=== PATIENT | male | born 1940 | race Caucasian/White ===

== ENCOUNTER 2020-05-25 15:20 | Inpatient (IN) | payer MEDICARE, BC, OTHER ==
[2020-05-25] MEDS ORDERED: cefTRIAXone 1 GM in Sodium Chloride 0.9% 100 ML IV ONE (17:05)
--- NOTE | 2020-05-25 17:05 | EDM.PDOC ---
ED HPI GENERAL MEDICAL PROBLEM - General Chief Complaint: General Stated Complaint: confusion, fever, blood in urine Time Seen by Provider: 05/25/20 15:30 Source of Information: Reports: Patient, EMS History Limitations: Reports: Altered Mental Status - History of Present Illness INITIAL COMMENTS - FREE TEXT/NARRATIVE: Pt brought to ER via EMS for hematuria and confusion Pt states he started having blood in urine yesterday Has hx/o UTI's in past HAs hx/o of only one kidney Family states weaker and confused today Questionable fever No SOB No cough No chest pain No N/V/D Onset: Gradual Duration: Day(s): Location: Reports: Generalized Associated Symptoms: Reports: Weakness, Other (Hematuria) - Related Data Allergies Allergy/AdvReac Type Severity Reaction Status Date / Time No Known Allergies Allergy Verified 05/25/20 16:36 Home Meds: Home Meds Allopurinol [Zyloprim] 300 mg PO BEDTIME 05/25/20 [History] Aspirin [Aspirin EC] 81 mg PO DAILY 05/25/20 [History] Ferrous Sulfate [Iron] 325 mg PO BIDMEALS 05/25/20 [History] Furosemide [Lasix] 40 mg PO DAILY 05/25/20 [History] Omeprazole 20 mg PO DAILY 05/25/20 [History] Potassium Chloride 20 meq PO DAILY@1800 05/25/20 [History] Simvastatin 80 mg PO BEDTIME 05/25/20 [History] carvediloL [Carvedilol] 12.5 mg PO BIDMEALS 05/25/20 [History] ED ROS GENERAL - Review of Systems Review Of Systems: See Below Constitutional: Reports: Malaise, Weakness, Fatigue HEENT: Reports: No Symptoms Respiratory: Reports: No Symptoms Cardiovascular: Reports: No Symptoms : Reports: Hematuria Skin: Reports: No Symptoms Neurological: Reports: Confusion ED EXAM, GENERAL - Physical Exam Exam: See Below Exam Limited By: Altered Mental Status General Appearance: WD/WN Eye Exam: Bilateral Eye: EOMI, PERRL Throat/Mouth: Normal Oropharynx Head: Atraumatic Neck: Non-Tender Respiratory/Chest: Lungs Clear Cardiovascular: Regular Rate, Rhythm GI/Abdominal: Soft, Non-Tender (Male) Exam: Other (Gross hematuria) Extremities: Normal Inspection Neurological: Confused Psychiatric: Normal Affect, Normal Mood Skin Exam: Warm, Dry Course - Orders/Labs/Meds Orders: Active Orders 24 hr Category Date Time Status CBC WITH AUTO DIFF [HEME] Stat Lab 05/25/20 15:50 Received COMPREHENSIVE METABOLIC PN,CMP [CHEM] Stat Lab 05/25/20 16:34 Ordered CORONAVIRUS COVID-19 JOSE [MOLEC] Stat Lab 05/25/20 16:43 Ordered CULTURE BLOOD [BC] Stat Lab 05/25/20 16:35 Ordered CULTURE BLOOD [BC] Stat Lab 05/25/20 16:35 Ordered INFLUENZA A+B AG SCREEN [RM] Stat Lab 05/25/20 16:43 Ordered LACTIC ACID [CHEM] Stat Lab 05/25/20 16:34 Ordered UA W/MICROSCOPIC [URIN] Stat Lab 05/25/20 16:34 Ordered Blood Culture x2 Reflex Set [OM.PC] Stat Oth 05/25/20 16:34 Ordered Isolation [COMM] Routine Oth 05/25/20 16:43 Active - Re-Assessments/Exams Free Text/Narrative Re-Assessment/Exam: 05/25/20 17:03 See lab CBC, CMP and lactic WNL UA with blood and WBC's Will admit for treatment of hematuria/UTI Pt given Rocephin 1 gm IV and 1 L NS Departure - Departure Time of Disposition: 17:00 Disposition: Admitted As Inpatient 67 Clinical Impression: UTI, Urinary tract infectious disease - Discharge Information - My Orders Last 24 Hours: My Active Orders 05/25/20 15:50 CBC WITH AUTO DIFF [HEME] Stat 05/25/20 16:34 COMPREHENSIVE METABOLIC PN,CMP [CHEM] Stat LACTIC ACID [CHEM] Stat UA W/MICROSCOPIC [URIN] Stat Blood Culture x2 Reflex Set [OM.PC] Stat 05/25/20 16:35 CULTURE BLOOD [BC] Stat CULTURE BLOOD [BC] Stat 05/25/20 16:43 CORONAVIRUS COVID-19 JOSE [MOLEC] Stat INFLUENZA A+B AG SCREEN [RM] Stat Isolation [COMM] Routine - Assessment/Plan Last 24 Hours: My Active Orders 05/25/20 15:50 CBC WITH AUTO DIFF [HEME] Stat 05/25/20 16:34 COMPREHENSIVE METABOLIC PN,CMP [CHEM] Stat LACTIC ACID [CHEM] Stat UA W/MICROSCOPIC [URIN] Stat Blood Culture x2 Reflex Set [OM.PC] Stat 05/25/20 16:35 CULTURE BLOOD [BC] Stat CULTURE BLOOD [BC] Stat 05/25/20 16:43 CORONAVIRUS COVID-19 JOSE [MOLEC] Stat INFLUENZA A+B AG SCREEN [RM] Stat Isolation [COMM] Routine
[2020-05-25 17:08] LABS: CHLORIDE,CL 101 mmol/L (98-107); SODIUM,NA 134 mmol/L (136-145)
--- NOTE | 2020-05-25 18:28 | PCM.HP.2 ---
H&P History of Present Illness - General Date of Service: 05/25/20 Admit Problem/Dx: Pt presented to ER with weakness, hematuria and confusion Has hx/o UTI's in past when has hematuria UA showed RBC's and WBC's Pt also Influenza A and B positive Pt given IVF and IV Rocephin in ER Will be admitted for IV antibiotics, fluids and further care Confusion has improved Source of Information: Patient, Family - History of Present Illness Onset of Symptoms: Reports: Gradual Duration of Symptoms: Reports: Day(s):, Getting Worse Location: Reports: Generalized Associated Symptoms: Reports: Weakness, Other (Confusion and hematuria) - Related Data Allergies/Adverse Reactions: Allergies Allergy/AdvReac Type Severity Reaction Status Date / Time No Known Allergies Allergy Verified 05/25/20 16:36 Home Medications: Home Meds Allopurinol [Zyloprim] 300 mg PO BEDTIME 05/25/20 [History] Aspirin [Aspirin EC] 81 mg PO DAILY 05/25/20 [History] Ferrous Sulfate [Iron] 325 mg PO BIDMEALS 05/25/20 [History] Furosemide [Lasix] 40 mg PO DAILY 05/25/20 [History] Omeprazole 20 mg PO DAILY 05/25/20 [History] Potassium Chloride 20 meq PO DAILY@1800 05/25/20 [History] Simvastatin 80 mg PO BEDTIME 05/25/20 [History] carvediloL [Carvedilol] 12.5 mg PO BIDMEALS 05/25/20 [History] Past Medical History - Past Surgical History Male Surgical History: Reports: Other (See Below) Other Male Surgeries/Procedures: L kidney removal H&P Review of Systems - Review of Systems: Review Of Systems: See Below General: Reports: Fever, Malaise, Weakness, Fatigue Pulmonary: Reports: No Symptoms Cardiovascular: Reports: No Symptoms Gastrointestinal: Reports: No Symptoms Genitourinary: Reports: Hematuria Musculoskeletal: Reports: No Symptoms Neurological: Reports: Confusion Exam - Exam Exam: See Below - Vital Signs Weight: 197 lb 8 oz - Exam General: Mild Distress HEENT: Mucosa Moist & [place] Neck: Supple Lungs: Clear to Auscultation Cardiovascular: Regular Rhythm GI/Abdominal Exam: Soft, Non-Tender (Male) Exam: Other (Gross hematuria) Extremities: Normal Inspection Neuro Extensive - Mental Status: Normal Mood/Affect, Other (Mildly confused) - Patient Data Lab Results Last 24 hrs: Laboratory Results - last 24 hr 05/25/20 05/25/20 05/25/20 Range/Units 15:50 15:50 15:50 WBC 8.6 (4.0-10.2) K/uL RBC 4.82 (4.33-5.41) M/uL Hgb 15.2 (13.1-16.8) g/dL Hct 45.5 (39.0-49.0) % MCV 94.4 (84.0-98.0) fL MCH 31.5 (28.2-33.3) pg MCHC 33.4 (31.7-36.0) g/dL RDW 15.0 H (11.2-14.1) % Plt Count 61 L (150-350) K/uL Neut % (Auto) 94.3 H (45.0-80.0) % Lymph % (Auto) 2.8 L (10.0-50.0) % [place] % (Auto) 2.8 (2.0-14.0) % Eos % (Auto) 0.0 (0.0-5.0) % Baso % (Auto) 0.1 (0.0-2.0) % Neut # (Auto) 8.15 H (1.40-7.00) K/uL Lymph # (Auto) 0.24 L (0.50-3.50) K/uL [place] # (Auto) 0.24 (0.00-1.00) K/uL Eos # (Auto) 0.00 (0.00-0.50) K/uL Baso # (Auto) 0.01 (0.00-0.20) K/uL Sodium 134 L (136-145) mmol/L Potassium 4.2 (3.5-5.1) mmol/L Chloride 101 (98-107) mmol/L Carbon Dioxide 27.4 (21.0-32.0) mmol/L BUN 38 H (7-18) mg/dL Creatinine 1.55 H (0.51-1.17) mg/dL Est Cr Clr Drug Dosing TNP Estimated GFR (MDRD) 43 mL/min Glucose 126 H (74-106) mg/dL Lactic Acid 1.5 (0.4-2.0) mmol/L Calcium 9.3 (8.5-10.1) mg/dL Total Bilirubin 1.3 H (0.2-1.0) mg/dL AST 22 (15-37) U/L ALT 22 (12-78) U/L Alkaline Phosphatase 103 (46-116) IU/L Total Protein 6.7 (6.4-8.2) g/dL Albumin 3.4 (3.4-5.0) g/dL Specimen Type Urine Color (YELLOW) Urine Appearance (CLEAR) Urine pH (5.0-9.0) Ur Specific [place] (1.005-1.030) Urine Protein (NEGATIVE) mg/dL Urine Glucose (UA) (NEGATIVE) mg/dL Urine Ketones (NEGATIVE) mg/dL Urine Occult Blood (NEGATIVE) Urine Nitrite (NEGATIVE) Urine Bilirubin (NEGATIVE) Urine Urobilinogen (0.2-1.0) E.U./dL Ur Leukocyte Esterase (NEGATIVE) Urine RBC /HPF Urine WBC /HPF Ur Epithelial Cells /LPF Urine Bacteria (NONE TO FEW) /HPF Urinalysis Comment 05/25/20 Range/Units 16:40 WBC (4.0-10.2) K/uL RBC (4.33-5.41) M/uL Hgb (13.1-16.8) g/dL Hct (39.0-49.0) % MCV (84.0-98.0) fL MCH (28.2-33.3) pg MCHC (31.7-36.0) g/dL RDW (11.2-14.1) % Plt Count (150-350) K/uL Neut % (Auto) (45.0-80.0) % Lymph % (Auto) (10.0-50.0) % [place] % (Auto) (2.0-14.0) % Eos % (Auto) (0.0-5.0) % Baso % (Auto) (0.0-2.0) % Neut # (Auto) (1.40-7.00) K/uL Lymph # (Auto) (0.50-3.50) K/uL Polk # (Auto) (0.00-1.00) K/uL Eos # (Auto) (0.00-0.50) K/uL Baso # (Auto) (0.00-0.20) K/uL Sodium (136-145) mmol/L Potassium (3.5-5.1) mmol/L Chloride (98-107) mmol/L Carbon Dioxide (21.0-32.0) mmol/L BUN (7-18) mg/dL Creatinine (0.51-1.17) mg/dL Est Cr Clr Drug Dosing Estimated GFR (MDRD) mL/min Glucose (74-106) mg/dL Lactic Acid (0.4-2.0) mmol/L Calcium (8.5-10.1) mg/dL Total Bilirubin (0.2-1.0) mg/dL AST (15-37) U/L ALT (12-78) U/L Alkaline Phosphatase (46-116) IU/L Total Protein (6.4-8.2) g/dL Albumin (3.4-5.0) g/dL Specimen Type Urinvoid Urine Color Red H (YELLOW) Urine Appearance Turbid H (CLEAR) Urine pH 5.5 (5.0-9.0) Ur Specific [place] 1.020 (1.005-1.030) Urine Protein >=300 H (NEGATIVE) mg/dL Urine Glucose (UA) Negative (NEGATIVE) mg/dL Urine Ketones Trace H (NEGATIVE) mg/dL Urine Occult Blood Large H (NEGATIVE) Urine Nitrite Negative (NEGATIVE) Urine Bilirubin Moderate H (NEGATIVE) Urine Urobilinogen 2.0 H (0.2-1.0) E.U./dL Ur Leukocyte Esterase Large H (NEGATIVE) Urine RBC Packed /HPF Urine WBC >100 H /HPF Ur Epithelial Cells Few /LPF Urine Bacteria Moderate H (NONE TO FEW) /HPF Urinalysis Comment Result Diagrams: 05/25/20 15:50 05/25/20 15:50 Boris Results Last 24 hrs: Microbiology 05/25/20 16:40 Influenza Type A Antigen Screen - Final Nasal, Left Positive Influenza A Ag Influenza Type B Antigen Screen - Final Positive Influenza B Ag Sepsis Event Note - Evaluation Sepsis Screening Result: No Definite Risk - Problem List (1) Influenza SNOMED Code(s): 9965261 ICD Code: J11.1 - FLU DUE TO UNIDENTIFIED INFLUENZA VIRUS W OTH RESP MANIFEST Status: Acute Current Visit: Yes Problem Details: Pt Influenza A and B positive (2) UTI, Urinary tract infectious disease SNOMED Code(s): 95171996 ICD Code: N39.0 - URINARY TRACT INFECTION, SITE NOT SPECIFIED Status: Acute Current Visit: Yes Problem Details: Pt with RBC's and WBC's on UA Hx/o hematuria with previous UTI's Will treat with IV Rocpehin Problem List Initiated/Reviewed/Updated: Yes Orders Last 24hrs: Active Orders 24 hr Category Date Time Status CORONAVIRUS COVID-19 JOSE [MOLEC] Stat Lab 05/25/20 16:43 Ordered CULTURE BLOOD [BC] Stat Lab 05/25/20 16:35 Ordered CULTURE BLOOD [BC] Stat Lab 05/25/20 16:35 Ordered Blood Culture x2 Reflex Set [OM.PC] Stat Oth 05/25/20 16:34 Ordered Isolation [COMM] Routine Oth 05/25/20 16:43 Active Assessment/Plan Comment:: Imp: Influenza A and B UTI Plan: IV Rocephin
[2020-05-25] MEDS ORDERED: Ondansetron 4 MG Tab.DIS PO PRN (18:34)
[2020-05-25] MEDS ORDERED: cefTRIAXone 1 GM in Sodium Chloride 0.9% 100 ML IV SCH (19:00)
[2020-05-25] MEDS ORDERED: Furosemide 40 MG Tab PO ONE (19:00)
[2020-05-25] MEDS: Omeprazole 20 MG Cap.CR PO SCH (19:33)
[2020-05-25] MEDS: Potassium Chloride 20 MEQ Tab.ER PO SCH (19:33)
[2020-05-25] MEDS: Allopurinol 100 MG Tab PO SCH (19:34)
[2020-05-25] MEDS: Simvastatin 20 MG Tab PO SCH (19:34)
[2020-05-26] MEDS: Acetaminophen 325 MG Tab PO PRN ×2 (05:18→19:30)
[2020-05-26] MEDS: Sodium Chloride 0.9% 10 ML Syringe FLUSH SCH ×3 (08:39→19:32)
[2020-05-26] MEDS: Carvedilol 12.5 MG Tab PO SCH ×2 (08:40→17:08)
[2020-05-26] MEDS: Furosemide 40 MG Tab PO SCH (08:57)
--- NOTE | 2020-05-26 09:37 | PCM.PN ---
- General Info Date of Service: 05/26/20 Subjective Update: Pt with several fever spikes during the night Afebrile now Feels better Less confused Blood cultures with Gram negative rods - Review of Systems General: Reports: Fever, Weakness, Fatigue, Malaise, Chills Genitourinary: Reports: Hematuria Neurological: Reports: Confusion - Patient Data Vitals - Most Recent: Last Vital Signs Temp 98.2 F 05/26/20 08:36 Pulse 75 05/26/20 08:40 Resp 16 05/26/20 08:36 BP 142/65 H 05/26/20 08:40 Pulse Ox 93 L 05/26/20 08:36 Weight - Most Recent: 197 lb 8 oz Lab Results Last 24 Hours: Laboratory Results - last 24 hr 05/25/20 05/25/20 05/25/20 Range/Units 15:50 15:50 15:50 WBC 8.6 (4.0-10.2) K/uL RBC 4.82 (4.33-5.41) M/uL Hgb 15.2 (13.1-16.8) g/dL Hct 45.5 (39.0-49.0) % MCV 94.4 (84.0-98.0) fL MCH 31.5 (28.2-33.3) pg MCHC 33.4 (31.7-36.0) g/dL RDW 15.0 H (11.2-14.1) % Plt Count 61 L (150-350) K/uL Neut % (Auto) 94.3 H (45.0-80.0) % Lymph % (Auto) 2.8 L (10.0-50.0) % [place]illi[place] % (Auto) 2.8 (2.0-14.0) % Eos % (Auto) 0.0 (0.0-5.0) % Baso % (Auto) 0.1 (0.0-2.0) % Neut # (Auto) 8.15 H (1.40-7.00) K/uL Lymph # (Auto) 0.24 L (0.50-3.50) K/uL [place]illiam # (Auto) 0.24 (0.00-1.00) K/uL Eos # (Auto) 0.00 (0.00-0.50) K/uL Baso # (Auto) 0.01 (0.00-0.20) K/uL Sodium 134 L (136-145) mmol/L Potassium 4.2 (3.5-5.1) mmol/L Chloride 101 (98-107) mmol/L Carbon Dioxide 27.4 (21.0-32.0) mmol/L BUN 38 H (7-18) mg/dL Creatinine 1.55 H (0.51-1.17) mg/dL Est Cr Clr Drug Dosing TNP Estimated GFR (MDRD) 43 mL/min Glucose 126 H (74-106) mg/dL Lactic Acid 1.5 (0.4-2.0) mmol/L Calcium 9.3 (8.5-10.1) mg/dL Total Bilirubin 1.3 H (0.2-1.0) mg/dL AST 22 (15-37) U/L ALT 22 (12-78) U/L Alkaline Phosphatase 103 (46-116) IU/L Total Protein 6.7 (6.4-8.2) g/dL Albumin 3.4 (3.4-5.0) g/dL Specimen Type Urine Color (YELLOW) Urine Appearance (CLEAR) Urine pH (5.0-9.0) Ur Specific [place] (1.005-1.030) Urine Protein (NEGATIVE) mg/dL Urine Glucose (UA) (NEGATIVE) mg/dL Urine Ketones (NEGATIVE) mg/dL Urine Occult Blood (NEGATIVE) Urine Nitrite (NEGATIVE) Urine Bilirubin (NEGATIVE) Urine Urobilinogen (0.2-1.0) E.U./dL Ur Leukocyte Esterase (NEGATIVE) Urine RBC /HPF Urine WBC /HPF Ur Epithelial Cells /LPF Urine Bacteria (NONE TO FEW) /HPF Urinalysis Comment 05/25/20 Range/Units 16:40 WBC (4.0-10.2) K/uL RBC (4.33-5.41) M/uL Hgb (13.1-16.8) g/dL Hct (39.0-49.0) % MCV (84.0-98.0) fL MCH (28.2-33.3) pg MCHC (31.7-36.0) g/dL RDW (11.2-14.1) % Plt Count (150-350) K/uL Neut % (Auto) (45.0-80.0) % Lymph % (Auto) (10.0-50.0) % [place] % (Auto) (2.0-14.0) % Eos % (Auto) (0.0-5.0) % Baso % (Auto) (0.0-2.0) % Neut # (Auto) (1.40-7.00) K/uL Lymph # (Auto) (0.50-3.50) K/uL [place]am # (Auto) (0.00-1.00) K/uL Eos # (Auto) (0.00-0.50) K/uL Baso # (Auto) (0.00-0.20) K/uL Sodium (136-145) mmol/L Potassium (3.5-5.1) mmol/L Chloride (98-107) mmol/L Carbon Dioxide (21.0-32.0) mmol/L BUN (7-18) mg/dL Creatinine (0.51-1.17) mg/dL Est Cr Clr Drug Dosing Estimated GFR (MDRD) mL/min Glucose (74-106) mg/dL Lactic Acid (0.4-2.0) mmol/L Calcium (8.5-10.1) mg/dL Total Bilirubin (0.2-1.0) mg/dL AST (15-37) U/L ALT (12-78) U/L Alkaline Phosphatase (46-116) IU/L Total Protein (6.4-8.2) g/dL Albumin (3.4-5.0) g/dL Specimen Type Urinvoid Urine Color Red H (YELLOW) Urine Appearance Turbid H (CLEAR) Urine pH 5.5 (5.0-9.0) Ur Specific [place] 1.020 (1.005-1.030) Urine Protein >=300 H (NEGATIVE) mg/dL Urine Glucose (UA) Negative (NEGATIVE) mg/dL Urine Ketones Trace H (NEGATIVE) mg/dL Urine Occult Blood Large H (NEGATIVE) Urine Nitrite Negative (NEGATIVE) Urine Bilirubin Moderate H (NEGATIVE) Urine Urobilinogen 2.0 H (0.2-1.0) E.U./dL Ur Leukocyte Esterase Large H (NEGATIVE) Urine RBC Packed /HPF Urine WBC >100 H /HPF Ur Epithelial Cells Few /LPF Urine Bacteria Moderate H (NONE TO FEW) /HPF Urinalysis Comment Boris Results Last 24 Hours: Microbiology 05/25/20 15:50 Aerobic Blood Culture - Preliminary Blood - Venous Gram Negative Rods Anaerobic Blood Culture - Preliminary Gram Negative Rods 05/25/20 16:00 Aerobic Blood Culture - Preliminary Blood - Venous - Lab Draw Gram Negative Rods Anaerobic Blood Culture - Preliminary Gram Negative Rods 05/25/20 16:40 Influenza Type A Antigen Screen - Final Nasal, Left Positive Influenza A Ag Influenza Type B Antigen Screen - Final Positive Influenza B Ag Med Orders - Current: Current Medications Acetaminophen (Tylenol) 650 mg PO Q4H PRN PRN Reason: Pain (Mild 1-3)/fever Last Admin: 05/26/20 05:18 Dose: 650 mg Documented by: Allopurinol (Zyloprim) 300 mg PO BEDTIME [facility] Last Admin: 05/25/20 19:34 Dose: 300 mg Documented by: Carvedilol (Coreg) 12.5 mg PO BIDMEALS [facility] Last Admin: 05/26/20 08:40 Dose: 12.5 mg Documented by: Furosemide (Lasix) 40 mg PO DAILY [facility] Last Admin: 05/26/20 08:57 Dose: Not Given Documented by: Ceftriaxone Sodium 1 gm/ (Sodium Chloride) 100 mls @ 200 mls/hr IV Q24H [facility] Omeprazole (Omeprazole) 20 mg PO BEDTIME [facility] Last Admin: 05/25/20 19:33 Dose: 20 mg Documented by: Ondansetron HCl (Zofran Odt) 8 mg PO Q6H PRN PRN Reason: Nausea/Vomiting Potassium Chloride (Klor-Con M20) 20 meq PO BEDTIME [facility] Last Admin: 05/25/20 19:33 Dose: 20 meq Documented by: Simvastatin (Zocor) 80 mg PO BEDTIME [facility] Last Admin: 05/25/20 19:34 Dose: 80 mg Documented by: Sodium Chloride (Saline Flush) 10 ml FLUSH [facility] Last Admin: 05/26/20 08:39 Dose: 10 ml Documented by: Discontinued Medications Furosemide (Lasix) 40 mg PO ONETIME ONE Stop: 05/25/20 19:01 Last Admin: 05/25/20 23:14 Dose: Not Given Documented by: Ceftriaxone Sodium 1 gm/ (Sodium Chloride) 100 mls @ 200 mls/hr IV ONETIME ONE Stop: 05/25/20 17:34 Last Admin: 05/25/20 17:32 Dose: 200 mls/hr Documented by: Ceftriaxone Sodium 1 gm/ (Sodium Chloride) 100 mls @ 200 mls/hr IV Q24H [facility] Last Admin: 05/25/20 23:15 Dose: Not Given Documented by: - Exam Lungs: Clear to Auscultation Cardiovascular: Regular Rhythm GI/Abdominal Exam: Soft, Non-Tender (Male) Exam: Other (Hematuria improved) Sepsis Event Note - Evaluation Sepsis Screening Result: No Definite Risk - Focused Exam Vital Signs: Vital Signs Temp Pulse Pulse Resp BP BP BP 05/26/20 08:40 75 142/65 H 05/26/20 08:36 98.2 F 75 16 142/65 H 05/26/20 05:45 100.2 F 05/26/20 05:15 100.7 F H 05/26/20 05:00 98.2 F 05/26/20 03:26 97.7 F 62 20 155/71 H 05/25/20 23:00 97.7 F 57 L 20 144/67 H Pulse Ox 05/26/20 08:40 05/26/20 08:36 93 L 05/26/20 05:45 05/26/20 05:15 05/26/20 05:00 05/26/20 03:26 96 05/25/20 23:00 98 - Problem List & Annotations (1) Influenza SNOMED Code(s): 5456911 Code(s): J11.1 - FLU DUE TO UNIDENTIFIED INFLUENZA VIRUS W OTH RESP MANIFEST Status: Acute Current Visit: Yes Annotation/Comment:: Pt Influenza A and B positive (2) UTI, Urinary tract infectious disease SNOMED Code(s): 08802114 Code(s): N39.0 - URINARY TRACT INFECTION, SITE NOT SPECIFIED Status: Acute Current Visit: Yes Annotation/Comment:: Pt with RBC's and WBC's on UA Hx/o hematuria with previous UTI's Will treat with IV Rocpehin - Problem List Review Problem List Initiated/Reviewed/Updated: Yes - My Orders Last 24 Hours: My Active Orders 05/25/20 15:50 CULTURE BLOOD [BC] Stat 05/25/20 16:00 CULTURE BLOOD [BC] Stat 05/25/20 16:34 Blood Culture x2 Reflex Set [OM.PC] Stat 05/25/20 16:43 CORONAVIRUS COVID-19 JOSE [MOLEC] Stat Isolation [COMM] Routine 05/25/20 18:29 Patient Status [ADT] Routine Oxygen Therapy [RC] PRN VTE/DVT Education [RC] PER UNIT ROUTINE Vital Signs [RC] Q4H 05/25/20 18:34 Oxygen Therapy [RC] .PRN Up With Assistance [RC] ASDIRECTED VTE/DVT Education [RC] DAILY Vital Signs [RC] Q4H Acetaminophen [TylenoL] 650 mg PO Q4H PRN Ondansetron [Zofran ODT] 8 mg PO Q6H PRN Resuscitation Status Routine 05/25/20 20:00 Omeprazole 20 mg PO BEDTIME Potassium Chloride [Klor-Con M20] 20 meq PO BEDTIME Simvastatin [Zocor] 80 mg PO BEDTIME allopurinoL [Zyloprim] 300 mg PO BEDTIME 05/26/20 07:30 carvediloL [Coreg] 12.5 mg PO BIDMEALS 05/26/20 08:00 Furosemide [Lasix] 40 mg PO DAILY Sodium Chloride 0.9% [Saline Flush] 10 ml FLUSH 05/26/20 08:17 CULTURE URINE [RM] Routine 05/26/20 17:00 cefTRIAXone [Rocephin] 1 gm Sodium Chloride 0.9% [Normal Saline] 100 ml IV Q24H - Assessment Assessment:: Imp: Hematuria Influenza A and B Covid pending Positive blood cultures Gram negative rods - Plan Plan:: Imp: Influenza A and B UTI Plan: IV Rocephin Recheck lab Add Zosyn Await final culture report
[2020-05-26] MEDS ORDERED: Piperacillin/Tazobactam 3.375 GM in Sodium Chloride 0.9% 100 ML IV SCH (10:00)
[2020-05-26] MEDS ORDERED: Sodium Chloride 0.45% 1,000 ML IV ONE (12:00)
[2020-05-26] MEDS: Sodium Chloride 0.9% 10 ML Syringe FLUSH PRN (12:31)
[2020-05-26] MEDS: Piperacillin/Tazobactam 2.25 GM in Sodium Chloride 0.9% 100 ML IV SCH ×2 (15:51→21:13)
[2020-05-26] MEDS: cefTRIAXone 1 GM in Sodium Chloride 0.9% 100 ML IV SCH (17:08)
[2020-05-26] MEDS: Allopurinol 100 MG Tab PO SCH (19:28)
[2020-05-26] MEDS: Potassium Chloride 20 MEQ Tab.ER PO SCH (19:29)
[2020-05-26] MEDS: Simvastatin 20 MG Tab PO SCH (19:29)
[2020-05-26] MEDS: Omeprazole 20 MG Cap.CR PO SCH (19:30)
[2020-05-27] MEDS: Acetaminophen/Codeine 300-30 MG Tab PO PRN ×3 (01:31→22:57)
[2020-05-27] MEDS: Piperacillin/Tazobactam 2.25 GM in Sodium Chloride 0.9% 100 ML IV SCH ×4 (03:57→22:19)
[2020-05-27] MEDS: Furosemide 40 MG Tab PO SCH (08:19)
[2020-05-27] MEDS: Carvedilol 12.5 MG Tab PO SCH ×2 (08:19→17:04)
[2020-05-27 08:38] LABS: CHLORIDE,CL 106 mmol/L (98-107); SODIUM,NA 138 mmol/L (136-145)
[2020-05-27] MEDS: Sodium Chloride 0.9% 10 ML Syringe FLUSH SCH ×3 (09:13→20:21)
[2020-05-27] MEDS: Sodium Chloride 0.9% 10 ML Syringe FLUSH PRN ×3 (09:16→22:22)
--- NOTE | 2020-05-27 09:36 | PCM.PN ---
- General Info Date of Service: 05/27/20 Subjective Update: Pt feeling better Hematuria resolved One fever spike last PM Eating and drinking ok - Review of Systems General: Reports: Weakness Genitourinary: Reports: Hematuria - Patient Data Vitals - Most Recent: Last Vital Signs Temp 99.2 F 05/27/20 08:13 Pulse 68 05/27/20 08:19 Resp 16 05/27/20 08:13 BP 174/84 H 05/27/20 08:19 Pulse Ox 94 L 05/27/20 08:13 Weight - Most Recent: 197 lb 8 oz I&O - Last 24 Hours: Intake & Output 05/26/20 05/27/20 05/27/20 18:59 02:59 10:59 Intake Total 700 1650 Balance 700 1650 Lab Results Last 24 Hours: Laboratory Results - last 24 hr 05/25/20 05/26/20 05/26/20 Range/Units 16:43 09:50 09:50 WBC 6.6 (4.0-10.2) K/uL RBC 4.36 (4.33-5.41) M/uL Hgb 13.7 D (13.1-16.8) g/dL Hct 41.1 (39.0-49.0) % MCV 94.3 (84.0-98.0) fL MCH 31.4 (28.2-33.3) pg MCHC 33.3 (31.7-36.0) g/dL RDW 15.0 H (11.2-14.1) % Plt Count 46 L* (150-350) K/uL Neut % (Auto) 89.9 H (45.0-80.0) % Lymph % (Auto) 3.5 L (10.0-50.0) % [place] % (Auto) 6.4 (2.0-14.0) % Eos % (Auto) 0.0 (0.0-5.0) % Baso % (Auto) 0.2 (0.0-2.0) % Neut # (Auto) 5.92 (1.40-7.00) K/uL Lymph # (Auto) 0.23 L (0.50-3.50) K/uL [place] # (Auto) 0.42 (0.00-1.00) K/uL Eos # (Auto) 0.00 (0.00-0.50) K/uL Baso # (Auto) 0.01 (0.00-0.20) K/uL Sodium 136 (136-145) mmol/L Potassium 4.0 (3.5-5.1) mmol/L Chloride 104 (98-107) mmol/L Carbon Dioxide 23.3 (21.0-32.0) mmol/L BUN 52 H (7-18) mg/dL Creatinine 1.51 H (0.51-1.17) mg/dL Est Cr Clr Drug Dosing 34.51 mL/min Estimated GFR (MDRD) 45 mL/min Glucose 164 H (74-106) mg/dL Lactic Acid (0.4-2.0) mmol/L Calcium 8.9 (8.5-10.1) mg/dL SARS-CoV-2 RNA (JOSE) Negative (NEGATIVE) 05/27/20 05/27/20 05/27/20 Range/Units 08:05 08:05 08:05 WBC 4.2 (4.0-10.2) K/uL RBC 4.44 (4.33-5.41) M/uL Hgb 13.8 (13.1-16.8) g/dL Hct 41.3 (39.0-49.0) % MCV 93.0 (84.0-98.0) fL MCH 31.1 (28.2-33.3) pg MCHC 33.4 (31.7-36.0) g/dL RDW 14.8 H (11.2-14.1) % Plt Count 52 L (150-350) K/uL Neut % (Auto) 82.3 H (45.0-80.0) % Lymph % (Auto) 7.2 L (10.0-50.0) % [place] % (Auto) 10.3 (2.0-14.0) % Eos % (Auto) 0.2 (0.0-5.0) % Baso % (Auto) 0.0 (0.0-2.0) % Neut # (Auto) 3.43 (1.40-7.00) K/uL Lymph # (Auto) 0.30 L (0.50-3.50) K/uL [place] # (Auto) 0.43 (0.00-1.00) K/uL Eos # (Auto) 0.01 (0.00-0.50) K/uL Baso # (Auto) 0.00 (0.00-0.20) K/uL Sodium 138 (136-145) mmol/L Potassium 4.2 (3.5-5.1) mmol/L Chloride 106 (98-107) mmol/L Carbon Dioxide 22.1 (21.0-32.0) mmol/L BUN 42 H (7-18) mg/dL Creatinine 1.13 (0.51-1.17) mg/dL Est Cr Clr Drug Dosing 46.11 mL/min Estimated GFR (MDRD) > 60 mL/min Glucose 108 H (74-106) mg/dL Lactic Acid 0.8 (0.4-2.0) mmol/L Calcium 8.9 (8.5-10.1) mg/dL SARS-CoV-2 RNA (JOSE) (NEGATIVE) Boris Results Last 24 Hours: Microbiology 05/25/20 15:50 Aerobic Blood Culture - Preliminary Blood - Venous Gram Negative Rods Anaerobic Blood Culture - Preliminary Gram Negative Rods 05/25/20 16:00 Aerobic Blood Culture - Preliminary Blood - Venous - Lab Draw Gram Negative Rods Anaerobic Blood Culture - Preliminary Gram Negative Rods Med Orders - Current: Current Medications Acetaminophen (Tylenol) 650 mg PO Q4H PRN PRN Reason: Pain (Mild 1-3)/fever Last Admin: 05/26/20 19:30 Dose: 650 mg Documented by: Acetaminophen/Codeine Phosphate (Tylenol With Codeine No.3 300mg/30mg) 1 tab PO Q6H PRN PRN Reason: Pain Last Admin: 05/27/20 09:12 Dose: 1 tab Documented by: Allopurinol (Zyloprim) 300 mg PO BEDTIME [facility] Last Admin: 05/26/20 19:28 Dose: 300 mg Documented by: Carvedilol (Coreg) 12.5 mg PO BIDMEALS [facility] Last Admin: 05/27/20 08:19 Dose: 12.5 mg Documented by: Furosemide (Lasix) 40 mg PO DAILY [facility] Last Admin: 05/27/20 08:19 Dose: 40 mg Documented by: Ceftriaxone Sodium 1 gm/ (Sodium Chloride) 100 mls @ 200 mls/hr IV Q24H [facility] Last Admin: 05/26/20 17:08 Dose: 200 mls/hr Documented by: Piperacillin Sod/Tazobactam (Sod 2.25 gm/ Sodium Chloride) 100 mls @ 200 mls/hr IV Q6H [facility] Last Admin: 05/27/20 09:13 Dose: 200 mls/hr Documented by: Omeprazole (Omeprazole) 20 mg PO BEDTIME [facility] Last Admin: 05/26/20 19:30 Dose: 20 mg Documented by: Ondansetron HCl (Zofran Odt) 8 mg PO Q6H PRN PRN Reason: Nausea/Vomiting Potassium Chloride (Klor-Con M20) 20 meq PO BEDTIME [facility] Last Admin: 05/26/20 19:29 Dose: 20 meq Documented by: Simvastatin (Zocor) 80 mg PO BEDTIME [facility] Last Admin: 05/26/20 19:29 Dose: 80 mg Documented by: Sodium Chloride (Saline Flush) 10 ml FLUSH [facility] Last Admin: 05/27/20 09:13 Dose: 10 ml Documented by: Sodium Chloride (Saline Flush) 10 ml FLUSH ASDIRECTED PRN PRN Reason: Keep Jenni Open Last Admin: 05/27/20 09:16 Dose: 10 ml Documented by: Discontinued Medications Furosemide (Lasix) 40 mg PO ONETIME ONE Stop: 05/25/20 19:01 Last Admin: 05/25/20 23:14 Dose: Not Given Documented by: Ceftriaxone Sodium 1 gm/ (Sodium Chloride) 100 mls @ 200 mls/hr IV ONETIME ONE Stop: 05/25/20 17:34 Last Admin: 05/25/20 17:32 Dose: 200 mls/hr Documented by: Ceftriaxone Sodium 1 gm/ (Sodium Chloride) 100 mls @ 200 mls/hr IV Q24H [facility] Last Admin: 05/25/20 23:15 Dose: Not Given Documented by: Piperacillin Sod/Tazobactam (Sod 3.375 gm/ Sodium Chloride) 100 mls @ 200 mls/hr IV Q6H [facility] Last Admin: 05/26/20 10:42 Dose: 200 mls/hr Documented by: Sodium Chloride (Sodium Chloride 0.45%) 1,000 mls @ 100 mls/hr IV ONETIME ONE Stop: 05/26/20 21:59 Last Admin: 05/26/20 12:28 Dose: 100 mls/hr Documented by: - Exam Neck: Supple Lungs: Normal Respiratory Effort Cardiovascular: Regular Rate GI/Abdominal Exam: Soft, Non-Tender Sepsis Event Note - Evaluation Sepsis Screening Result: No Definite Risk - Focused Exam Vital Signs: Vital Signs Temp Pulse Pulse Resp BP BP BP 05/27/20 08:19 68 174/84 H 05/27/20 08:13 99.2 F 68 16 174/84 H 05/27/20 04:05 97.8 F 59 L 20 151/66 H 05/27/20 01:00 98 F 65 20 165/74 H 05/26/20 21:36 99.5 F Pulse Ox 05/27/20 08:19 05/27/20 08:13 94 L 05/27/20 04:05 94 L 05/27/20 01:00 93 L 05/26/20 21:36 - Problem List & Annotations (1) Influenza SNOMED Code(s): 9348558 Code(s): J11.1 - FLU DUE TO UNIDENTIFIED INFLUENZA VIRUS W OTH RESP MANIFEST Status: Acute Current Visit: Yes Annotation/Comment:: Pt Influenza A and B positive (2) UTI, Urinary tract infectious disease SNOMED Code(s): 33415761 Code(s): N39.0 - URINARY TRACT INFECTION, SITE NOT SPECIFIED Status: Acute Current Visit: Yes Annotation/Comment:: Pt with RBC's and WBC's on UA Hx/o hematuria with previous UTI's Will treat with IV Rocpehin - Problem List Review Problem List Initiated/Reviewed/Updated: Yes - My Orders Last 24 Hours: My Active Orders 05/26/20 10:53 Sodium Chloride 0.9% [Saline Flush] 10 ml FLUSH ASDIRECTED PRN 05/26/20 16:00 Piperacillin/Tazobactam [Zosyn] 2.25 gm Sodium Chloride 0.9% [Normal Saline] 100 ml IV Q6H 05/26/20 17:00 cefTRIAXone [Rocephin] 1 gm Sodium Chloride 0.9% [Normal Saline] 100 ml IV Q24H 05/26/20 22:15 Acetaminophen/Codeine [Tylenol with Codeine No.3 300MG/30MG] 1 tab PO Q6H PRN - Assessment Assessment:: Imp: Hematuria Influenza A and B Covid pending Positive blood cultures Gram negative rods Covid test negative Hematuria resolved - Plan Plan:: Imp: Influenza A and B UTI Plan: IV Rocephin Recheck lab Add Zosyn Await final culture report
[2020-05-27] MEDS: cefTRIAXone 1 GM in Sodium Chloride 0.9% 100 ML IV SCH (17:03)
[2020-05-27] MEDS: Simvastatin 20 MG Tab PO SCH (20:19)
[2020-05-27] MEDS: Omeprazole 20 MG Cap.CR PO SCH (20:20)
[2020-05-27] MEDS: Potassium Chloride 20 MEQ Tab.ER PO SCH (20:20)
[2020-05-27] MEDS: Allopurinol 100 MG Tab PO SCH (20:21)
[2020-05-27] MEDS: Acetaminophen 325 MG Tab PO PRN (20:21)
[2020-05-28] MEDS: Sodium Chloride 0.9% 10 ML Syringe FLUSH PRN ×6 (04:09→22:42)
[2020-05-28] MEDS: Piperacillin/Tazobactam 2.25 GM in Sodium Chloride 0.9% 100 ML IV SCH ×4 (04:09→22:41)
[2020-05-28] MEDS: Carvedilol 12.5 MG Tab PO SCH ×2 (08:46→16:49)
[2020-05-28] MEDS: Sodium Chloride 0.9% 10 ML Syringe FLUSH SCH ×2 (08:46→20:17)
[2020-05-28] MEDS: Furosemide 40 MG Tab PO SCH (08:46)
--- NOTE | 2020-05-28 09:17 | PCM.PN ---
- General Info Date of Service: 05/28/20 Subjective Update: Fever to 100.7 last PM No further fevers Feels better Ambulating in room - Review of Systems General: Reports: Fever, Weakness Pulmonary: Reports: Shortness of Breath Cardiovascular: Reports: No Symptoms Genitourinary: Reports: Hematuria - Patient Data Vitals - Most Recent: Last Vital Signs Temp 98.4 F 05/28/20 04:00 Pulse 57 L 05/28/20 08:46 Resp 19 05/28/20 04:00 BP 171/71 H 05/28/20 08:46 Pulse Ox 94 L 05/28/20 04:00 Weight - Most Recent: 197 lb 7.982 oz I&O - Last 24 Hours: Intake & Output 05/27/20 05/28/20 05/28/20 18:59 02:59 10:59 Intake Total 471 Balance 471 Boris Results Last 24 Hours: Microbiology 05/25/20 15:50 Aerobic Blood Culture - Final Blood - Venous Escherichia Coli Anaerobic Blood Culture - Preliminary Gram Negative Rods Med Orders - Current: Current Medications Acetaminophen (Tylenol) 650 mg PO Q4H PRN PRN Reason: Pain (Mild 1-3)/fever Last Admin: 05/27/20 20:21 Dose: 650 mg Documented by: Acetaminophen/Codeine Phosphate (Tylenol With Codeine No.3 300mg/30mg) 1 tab PO Q6H PRN PRN Reason: Pain Last Admin: 05/27/20 22:57 Dose: 1 tab Documented by: Allopurinol (Zyloprim) 300 mg PO BEDTIME [facility] Last Admin: 05/27/20 20:21 Dose: 300 mg Documented by: Carvedilol (Coreg) 12.5 mg PO BIDMEALS [facility] Last Admin: 05/28/20 08:46 Dose: 12.5 mg Documented by: Furosemide (Lasix) 40 mg PO DAILY [facility] Last Admin: 05/28/20 08:46 Dose: 40 mg Documented by: Ceftriaxone Sodium 1 gm/ (Sodium Chloride) 100 mls @ 200 mls/hr IV Q24H [facility] Last Admin: 05/27/20 17:03 Dose: 200 mls/hr Documented by: Piperacillin Sod/Tazobactam (Sod 2.25 gm/ Sodium Chloride) 100 mls @ 200 mls/hr IV Q6H [facility] Last Admin: 05/28/20 04:09 Dose: 200 mls/hr Documented by: Omeprazole (Omeprazole) 20 mg PO BEDTIME [facility] Last Admin: 05/27/20 20:20 Dose: 20 mg Documented by: Ondansetron HCl (Zofran Odt) 8 mg PO Q6H PRN PRN Reason: Nausea/Vomiting Potassium Chloride (Klor-Con M20) 20 meq PO BEDTIME [facility] Last Admin: 05/27/20 20:20 Dose: 20 meq Documented by: Simvastatin (Zocor) 80 mg PO BEDTIME [facility] Last Admin: 05/27/20 20:19 Dose: 80 mg Documented by: Sodium Chloride (Saline Flush) 10 ml FLUSH 20 [facility] Last Admin: 05/28/20 08:46 Dose: 10 ml Documented by: Sodium Chloride (Saline Flush) 10 ml FLUSH ASDIRECTED PRN PRN Reason: Keep Jenni Open Last Admin: 05/28/20 04:09 Dose: 10 ml Documented by: Discontinued Medications Furosemide (Lasix) 40 mg PO ONETIME ONE Stop: 05/25/20 19:01 Last Admin: 05/25/20 23:14 Dose: Not Given Documented by: Ceftriaxone Sodium 1 gm/ (Sodium Chloride) 100 mls @ 200 mls/hr IV ONETIME ONE Stop: 05/25/20 17:34 Last Admin: 05/25/20 17:32 Dose: 200 mls/hr Documented by: Ceftriaxone Sodium 1 gm/ (Sodium Chloride) 100 mls @ 200 mls/hr IV Q24H [facility] Last Admin: 05/25/20 23:15 Dose: Not Given Documented by: Piperacillin Sod/Tazobactam (Sod 3.375 gm/ Sodium Chloride) 100 mls @ 200 mls/hr IV Q6H [facility] Last Admin: 05/26/20 10:42 Dose: 200 mls/hr Documented by: Sodium Chloride (Sodium Chloride 0.45%) 1,000 mls @ 100 mls/hr IV ONETIME ONE Stop: 05/26/20 21:59 Last Admin: 05/26/20 12:28 Dose: 100 mls/hr Documented by: - Exam General: Alert, Oriented Neck: Supple Lungs: Clear to Auscultation Cardiovascular: Regular Rate GI/Abdominal Exam: Soft, Non-Tender (Male) Exam: Other (No hematuria) Sepsis Event Note - Evaluation Sepsis Screening Result: No Definite Risk - Focused Exam Vital Signs: Vital Signs Temp Pulse Pulse Resp BP BP Pulse Ox 05/28/20 08:46 57 L 171/71 H 05/28/20 04:00 98.4 F 56 L 19 166/77 H 94 L 05/27/20 22:58 97.8 F 63 20 149/75 H 93 L - Problem List & Annotations (1) Influenza SNOMED Code(s): 8351101 Code(s): J11.1 - FLU DUE TO UNIDENTIFIED INFLUENZA VIRUS W OTH RESP MANIFEST Status: Acute Current Visit: Yes Annotation/Comment:: Pt Influenza A and B positive (2) UTI, Urinary tract infectious disease SNOMED Code(s): 44411179 Code(s): N39.0 - URINARY TRACT INFECTION, SITE NOT SPECIFIED Status: Acute Current Visit: Yes Annotation/Comment:: Pt with RBC's and WBC's on UA Hx/o hematuria with previous UTI's Will treat with IV Rocpehin - Problem List Review Problem List Initiated/Reviewed/Updated: Yes - Assessment Assessment:: Imp: Hematuria Influenza A and B Covid pending Positive blood cultures Gram negative rods Covid test negative Hematuria resolved Imp: Influenza A and B UTI Hematuria resolved - Plan Plan:: Imp: Influenza A and B UTI Plan: IV Rocephin Recheck lab Add Zosyn Await final culture report Plan: Continue IV antibiotics Monitor fever
[2020-05-28] MEDS: cefTRIAXone 1 GM in Sodium Chloride 0.9% 100 ML IV SCH (16:49)
[2020-05-28] MEDS: Potassium Chloride 20 MEQ Tab.ER PO SCH (20:16)
[2020-05-28] MEDS: Omeprazole 20 MG Cap.CR PO SCH (20:16)
[2020-05-28] MEDS: Simvastatin 20 MG Tab PO SCH (20:17)
[2020-05-28] MEDS: Allopurinol 100 MG Tab PO SCH (20:17)
[2020-05-28] MEDS: Acetaminophen 325 MG Tab PO PRN (22:44)
[2020-05-29] MEDS: Piperacillin/Tazobactam 2.25 GM in Sodium Chloride 0.9% 100 ML IV SCH ×4 (03:30→21:23)
[2020-05-29] MEDS: Sodium Chloride 0.9% 10 ML Syringe FLUSH PRN ×4 (03:30→21:24)
[2020-05-29] MEDS: Furosemide 40 MG Tab PO SCH (07:48)
[2020-05-29] MEDS: Carvedilol 12.5 MG Tab PO SCH ×2 (07:49→16:59)
[2020-05-29] MEDS: Sodium Chloride 0.9% 10 ML Syringe FLUSH SCH ×2 (07:49→19:51)
[2020-05-29 08:03] LABS: CHLORIDE,CL 105 mmol/L (98-107); SODIUM,NA 139 mmol/L (136-145)
[2020-05-29] MEDS: Enoxaparin 40 MG/0.4 ML Syringe SUBCUT SCH (14:18)
[2020-05-29] MEDS: Losartan 50 MG Tab PO SCH (14:19)
--- NOTE | 2020-05-29 15:56 | PCM.PN ---
- General Info Date of Service: 05/29/20 Admission Dx/Problem (Free Text): Pt presented to ER with weakness, hematuria and confusion Has hx/o UTI's in past when has hematuria Noted to have UTI. Pt also Influenza A and B positive Pt given IV fluids and IV Rocephin in ER. Admitted for further care/fluids/antibiotics. Blood cultures + for E.Coli sepsis. Subjective Update: Low grade temps intermittently. Patient feels tired. No other acute changes reported. Functional Status: Reports: Pain Controlled, Tolerating Diet, Ambulating, Urinating. Denies: New Symptoms - Review of Systems General: Reports: Fever, Weakness, Fatigue, Appetite (decreased). Denies: Malaise, Chills, Night Sweats HEENT: Reports: Rhinitis. Denies: Headaches, Post Nasal Drip, Sinus Congestion, Sore Throat, Visual Changes Pulmonary: Reports: Cough (minimal/improving). Denies: Shortness of Breath, Pleuritic Chest Pain, Sputum, Hemoptysis, Wheezing Cardiovascular: Reports: No Symptoms Gastrointestinal: Reports: No Symptoms Genitourinary: Reports: Hematuria (improved) Musculoskeletal: Reports: Other (no acute changes from baseline) Skin: Reports: No Symptoms Neurological: Reports: No Symptoms Psychiatric: Reports: No Symptoms - Patient Data Vitals - Most Recent: Last Vital Signs Temp 36.9 C 05/29/20 12:14 Pulse 56 L 05/29/20 12:14 Resp 16 05/29/20 12:14 BP 144/76 H 05/29/20 14:19 Pulse Ox 96 05/29/20 12:14 Weight - Most Recent: 89.584 kg I&O - Last 24 Hours: Intake & Output 05/29/20 05/29/20 05/29/20 06:59 14:59 22:59 Intake Total 85 Balance 85 Lab Results Last 24 Hours: Laboratory Results - last 24 hr 05/29/20 05/29/20 Range/Units 07:15 07:15 WBC 5.2 (4.0-10.2) K/uL RBC 4.58 (4.33-5.41) M/uL Hgb 14.2 (13.1-16.8) g/dL Hct 42.0 (39.0-49.0) % MCV 91.7 (84.0-98.0) fL MCH 31.0 (28.2-33.3) pg MCHC 33.8 (31.7-36.0) g/dL RDW 14.2 H (11.2-14.1) % Plt Count 63 L (150-350) K/uL Neut % (Auto) 66.7 (45.0-80.0) % Lymph % (Auto) 18.2 (10.0-50.0) % [place] % (Auto) 12.6 (2.0-14.0) % Eos % (Auto) 2.3 (0.0-5.0) % Baso % (Auto) 0.2 (0.0-2.0) % Neut # (Auto) 3.44 (1.40-7.00) K/uL Lymph # (Auto) 0.94 (0.50-3.50) K/uL [place] # (Auto) 0.65 (0.00-1.00) K/uL Eos # (Auto) 0.12 (0.00-0.50) K/uL Baso # (Auto) 0.01 (0.00-0.20) K/uL Sodium 139 (136-145) mmol/L Potassium 3.9 (3.5-5.1) mmol/L Chloride 105 (98-107) mmol/L Carbon Dioxide 27.4 (21.0-32.0) mmol/L BUN 17 D (7-18) mg/dL Creatinine 1.04 (0.51-1.17) mg/dL Est Cr Clr Drug Dosing 50.03 mL/min Estimated GFR (MDRD) > 60 mL/min Glucose 104 (74-106) mg/dL Calcium 8.4 L (8.5-10.1) mg/dL Boris Results Last 24 Hours: Microbiology 05/29/20 13:40 Influenza Type A Antigen Screen - Final Nasal Aspirate, Unspecified NEGATIVE INFLUENZA A VIRUS AG REFERENCE RANGE: NEGATIVE Influenza Type B Antigen Screen - Final Positive Influenza B Ag 05/25/20 15:50 Aerobic Blood Culture - Final Blood - Venous Escherichia Coli Anaerobic Blood Culture - Final Gram Negative Rods 05/25/20 16:00 Aerobic Blood Culture - Final Blood - Venous - Lab Draw Escherichia Coli Anaerobic Blood Culture - Final Gram Negative Rods Med Orders - Current: Current Medications Acetaminophen (Tylenol) 650 mg PO Q4H PRN PRN Reason: Pain (Mild 1-3)/fever Last Admin: 05/28/20 22:44 Dose: 650 mg Documented by: Acetaminophen/Codeine Phosphate (Tylenol With Codeine No.3 300mg/30mg) 1 tab PO Q6H PRN PRN Reason: Pain Last Admin: 05/27/20 22:57 Dose: 1 tab Documented by: Allopurinol (Zyloprim) 300 mg PO BEDTIME [facility] Last Admin: 05/28/20 20:17 Dose: 300 mg Documented by: Carvedilol (Coreg) 12.5 mg PO BIDMEALS [facility] Last Admin: 05/29/20 07:49 Dose: 12.5 mg Documented by: Cefuroxime Axetil (Ceftin) 500 mg PO BID [facility] Enoxaparin Sodium (Lovenox) 40 mg SUBCUT Q24H [facility] Last Admin: 05/29/20 14:18 Dose: 40 mg Documented by: Furosemide (Lasix) 40 mg PO DAILY [facility] Last Admin: 05/29/20 07:48 Dose: 40 mg Documented by: Ceftriaxone Sodium 1 gm/ (Sodium Chloride) 100 mls @ 200 mls/hr IV Q24H [facility] Last Admin: 05/28/20 16:49 Dose: 200 mls/hr Documented by: Piperacillin Sod/Tazobactam (Sod 2.25 gm/ Sodium Chloride) 100 mls @ 200 mls/hr IV Q6H [facility] Last Admin: 05/29/20 10:06 Dose: 200 mls/hr Documented by: Losartan Potassium (Cozaar) 25 mg PO DAILY [facility] Last Admin: 05/29/20 14:19 Dose: 25 mg Documented by: Omeprazole (Omeprazole) 20 mg PO BEDTIME [facility] Last Admin: 05/28/20 20:16 Dose: 20 mg Documented by: Ondansetron HCl (Zofran Odt) 8 mg PO Q6H PRN PRN Reason: Nausea/Vomiting Potassium Chloride (Klor-Con M20) 20 meq PO BEDTIME [facility] Last Admin: 05/28/20 20:16 Dose: 20 meq Documented by: Simvastatin (Zocor) 80 mg PO BEDTIME [facility] Last Admin: 05/28/20 20:17 Dose: 80 mg Documented by: Sodium Chloride (Saline Flush) 10 ml FLUSH [facility] Last Admin: 05/29/20 07:49 Dose: 10 ml Documented by: Sodium Chloride (Saline Flush) 10 ml FLUSH ASDIRECTED PRN PRN Reason: Keep Jenni Open Last Admin: 05/29/20 03:30 Dose: 10 ml Documented by: Discontinued Medications Furosemide (Lasix) 40 mg PO ONETIME ONE Stop: 05/25/20 19:01 Last Admin: 05/25/20 23:14 Dose: Not Given Documented by: Ceftriaxone Sodium 1 gm/ (Sodium Chloride) 100 mls @ 200 mls/hr IV ONETIME ONE Stop: 05/25/20 17:34 Last Admin: 05/25/20 17:32 Dose: 200 mls/hr Documented by: Ceftriaxone Sodium 1 gm/ (Sodium Chloride) 100 mls @ 200 mls/hr IV Q24H [facility] Last Admin: 05/25/20 23:15 Dose: Not Given Documented by: Piperacillin Sod/Tazobactam (Sod 3.375 gm/ Sodium Chloride) 100 mls @ 200 mls/hr IV Q6H [facility] Last Admin: 05/26/20 10:42 Dose: 200 mls/hr Documented by: Sodium Chloride (Sodium Chloride 0.45%) 1,000 mls @ 100 mls/hr IV ONETIME ONE Stop: 05/26/20 21:59 Last Admin: 05/26/20 12:28 Dose: 100 mls/hr Documented by: - Exam Quality Assessment: DVT Prophylaxis General: Alert, Oriented, Cooperative, No Acute Distress HEENT: Pupils Equal, Pupils Reactive, EOMI, Mucous Membr. Moist/[place] Neck: Supple Lungs: Clear to Auscultation, Normal Respiratory Effort Cardiovascular: Regular Rate, Regular Rhythm GI/Abdominal Exam: Normal Bowel Sounds, Soft, Non-Tender, No Distention (Male) Exam: Deferred Back Exam: No: CVA Tenderness (L), CVA Tenderness (R) Extremities: Normal Inspection, Non-Tender, No Pedal Edema, Normal Capillary Refill Peripheral Pulses: 2+: Radial (L), Radial (R) Skin: Warm, Dry Neurological: No New Focal Deficit Psy/Mental Status: Alert, Normal Affect Sepsis Event Note - Evaluation Sepsis Screening Result: No Definite Risk - Focused Exam Vital Signs: Vital Signs Temp Pulse Pulse Resp BP BP Pulse Ox 05/29/20 14:19 144/76 H 05/29/20 12:14 36.9 C 56 L 16 144/76 H 96 05/29/20 07:49 61 172/82 H 05/29/20 07:46 37.2 C 61 20 172/82 H 97 - Problem List & Annotations (1) Bacteremia, escherichia coli SNOMED Code(s): 876989188831 Code(s): R78.81 - BACTEREMIA; B96.20 - UNSP ESCHERICHIA COLI THE CAUSE OF DISEASES CLASSD ELSWHR Status: Acute Priority: High Current Visit: Yes Onset Date: ~05/25/20 Annotation/Comment:: Blood cultures + for E.Coli. Patient receiving Zosyn and Rocephin. Given persistent low grade fevers will continue IV therapy today and tomorrow with planned switch to oral agent after that if patient becomes fever-free. (2) UTI, Urinary tract infectious disease SNOMED Code(s): 68481607 Code(s): N39.0 - URINARY TRACT INFECTION, SITE NOT SPECIFIED Status: Acute Priority: High Current Visit: Yes Annotation/Comment:: E.Coli UTI. IV antibiotics as noted above. (3) Influenza SNOMED Code(s): 7676331 Code(s): J11.1 - FLU DUE TO UNIDENTIFIED INFLUENZA VIRUS W OTH RESP MANIFEST Status: Acute Priority: Medium Current Visit: Yes Annotation/Comment:: Pt Influenza A and B positive. Denies signficant respiratory complaints. Mild cough and congestion only and that is improving. Screen repeated today to verify positive influenza results given minimal complaints of flu-like symptoms in addition to the rareness of being positive to both strains simultaneously. Positive for B only today. (4) HTN (hypertension) SNOMED Code(s): 18250170 Code(s): I10 - ESSENTIAL (PRIMARY) HYPERTENSION Status: Chronic Priority: Medium Current Visit: Yes Qualifiers: Hypertension type: essential hypertension Qualified Code(s): I10 - Essential (primary) hypertension Annotation/Comment:: Has been running high during stay. Addition of small dose Losartan to regimen today/observe trends. (5) Hyperlipidemia SNOMED Code(s): 76565939 Code(s): E78.5 - HYPERLIPIDEMIA, UNSPECIFIED Status: Chronic Priority: Low Current Visit: No Qualifiers: Hyperlipidemia type: unspecified Qualified Code(s): E78.5 - Hyperlipidemia, unspecified Annotation/Comment:: under therapy (6) Gout SNOMED Code(s): 63682422 Code(s): M10.9 - GOUT, UNSPECIFIED Status: Chronic Priority: Low Current Visit: No Qualifiers: Gout site: unspecified site Annotation/Comment:: under therapy (7) GERD (gastroesophageal reflux disease) SNOMED Code(s): 051556661 Code(s): K21.9 - GASTRO-ESOPHAGEAL REFLUX DISEASE WITHOUT ESOPHAGITIS Status: Chronic Priority: Low Current Visit: No Qualifiers: Esophagitis presence: esophagitis presence not specified Qualified Code(s): K21.9 - Gastro-esophageal reflux disease without esophagitis Annotation/Comment:: Under therapy. Will plan on holding Omeprazole when patient is on Ceftin due to absorption issues of Ceftin while on PPI - Problem List Review Problem List Initiated/Reviewed/Updated: Yes - My Orders Last 24 Hours: My Active Orders 05/29/20 12:53 Isolation [COMM] Routine 05/29/20 13:00 Enoxaparin [Lovenox] 40 mg SUBCUT Q24H Losartan [Cozaar] 25 mg PO DAILY 05/31/20 08:00 Cefuroxime [Ceftin] 500 mg PO BID - Assessment Assessment:: Patient with multiple concomitant infections, including Influenza a/b +, E.Coli UTI, and E.Coli bacteremia. - Plan Plan:: As above. Patient will require several extra days beyond 96 hours critical access admission given the severity of diagnoses, most prominent being the E.Coli bacteremia. He is improving and transfer to higher LOC is not indicated. Given the intermittent low grade fevers IV antibiotics will be continued one more day (tomorrow) and patient will be changed to oral Ceftin (Thursday) and if doing well can possibly be discharged home.
[2020-05-29] MEDS: cefTRIAXone 1 GM in Sodium Chloride 0.9% 100 ML IV SCH (17:18)
[2020-05-29] MEDS ORDERED: Losartan 50 MG Tab PO ONE (19:19)
[2020-05-29] MEDS: Simvastatin 20 MG Tab PO SCH (19:46)
[2020-05-29] MEDS: Potassium Chloride 20 MEQ Tab.ER PO SCH (19:49)
[2020-05-29] MEDS: Omeprazole 20 MG Cap.CR PO SCH (19:50)
[2020-05-29] MEDS: Allopurinol 100 MG Tab PO SCH (19:50)
[2020-05-30] MEDS: Piperacillin/Tazobactam 2.25 GM in Sodium Chloride 0.9% 100 ML IV SCH (04:55)
[2020-05-30] MEDS: Sodium Chloride 0.9% 10 ML Syringe FLUSH PRN ×2 (04:55→13:28)
[2020-05-30] MEDS: Sodium Chloride 0.9% 10 ML Syringe FLUSH SCH ×2 (08:21→19:46)
[2020-05-30] MEDS: Carvedilol 12.5 MG Tab PO SCH ×2 (08:21→18:05)
[2020-05-30] MEDS: Losartan 50 MG Tab PO SCH (08:21)
[2020-05-30] MEDS: Furosemide 40 MG Tab PO SCH (08:22)
[2020-05-30] MEDS ORDERED: Loperamide 2 MG Tab PO PRN (09:20)
[2020-05-30] MEDS: Acetaminophen 325 MG Tab PO PRN (09:36)
[2020-05-30] MEDS ORDERED: Furosemide 20 MG/2 ML VIAL IVPUSH ONE (13:00)
[2020-05-30] MEDS: Enoxaparin 40 MG/0.4 ML Syringe SUBCUT SCH (13:28)
[2020-05-30] MEDS ORDERED: Losartan 50 MG Tab PO ONE (17:27)
--- NOTE | 2020-05-30 17:37 | PCM.PN ---
- General Info Date of Service: 05/30/20 Admission Dx/Problem (Free Text): Pt presented to ER with weakness, hematuria and confusion Has hx/o UTI's in past when has hematuria Noted to have UTI. Pt also Influenza A and B positive Pt given IV fluids and IV Rocephin in ER. Admitted for further care/fluids/antibiotics. Blood cultures + for E.Coli sepsis. Subjective Update: Patient feels a bit more energetic today. Was able to work with PT/OT, walked around room. Feels stronger. No feelings of fever throughout today. Appetite is still a bit poor. No acute changes reported. Functional Status: Reports: Pain Controlled, Tolerating Diet, Ambulating, Urinating. Denies: New Symptoms - Review of Systems General: Reports: Weakness (improving), Appetite (improving). Denies: Fever, Chills, Night Sweats HEENT: Denies: Headaches, Post Nasal Drip, Sinus Congestion, Sore Throat, Rhinitis, Visual Changes Pulmonary: Reports: Cough (improving). Denies: Shortness of Breath, Pleuritic Chest Pain, Sputum, Hemoptysis, Wheezing Cardiovascular: Reports: No Symptoms. Denies: Chest Pain, Dyspnea on Exertion, Orthopnea, Edema, Lightheadedness Gastrointestinal: Reports: No Symptoms Genitourinary: Reports: No Symptoms Musculoskeletal: Reports: Other (no acute changes from baseline) Skin: Reports: No Symptoms Neurological: Reports: No Symptoms Psychiatric: Reports: No Symptoms - Patient Data Vitals - Most Recent: Last Vital Signs Temp 36.9 C 05/30/20 16:00 Pulse 55 L 05/30/20 16:00 Resp 18 05/30/20 16:00 BP 165/69 H 05/30/20 16:00 Pulse Ox 94 L 05/30/20 16:00 Weight - Most Recent: 89.584 kg I&O - Last 24 Hours: Intake & Output 05/30/20 05/30/20 05/30/20 06:59 14:59 22:59 Intake Total 100 Balance 100 Lab Results Last 24 Hours: Laboratory Results - last 24 hr 05/30/20 05/30/20 Range/Units 06:35 06:35 WBC 5.2 (4.0-10.2) K/uL RBC 4.51 (4.33-5.41) M/uL Hgb 13.9 (13.1-16.8) g/dL Hct 41.1 (39.0-49.0) % MCV 91.1 (84.0-98.0) fL MCH 30.8 (28.2-33.3) pg MCHC 33.8 (31.7-36.0) g/dL RDW 14.2 H (11.2-14.1) % Plt Count 68 L (150-350) K/uL Neut % (Auto) 64.9 (45.0-80.0) % Lymph % (Auto) 21.5 (10.0-50.0) % [place] % (Auto) 11.9 (2.0-14.0) % Eos % (Auto) 1.5 (0.0-5.0) % Baso % (Auto) 0.2 (0.0-2.0) % Neut # (Auto) 3.39 (1.40-7.00) K/uL Lymph # (Auto) 1.12 (0.50-3.50) K/uL [place] # (Auto) 0.62 (0.00-1.00) K/uL Eos # (Auto) 0.08 (0.00-0.50) K/uL Baso # (Auto) 0.01 (0.00-0.20) K/uL Magnesium 2.2 (1.8-2.4) mg/dL Boris Results Last 24 Hours: Microbiology 05/29/20 13:40 Influenza Type A Antigen Screen - Final Nasal Aspirate, Unspecified NEGATIVE INFLUENZA A VIRUS AG REFERENCE RANGE: NEGATIVE Influenza Type B Antigen Screen - Final Positive Influenza B Ag 05/25/20 15:50 Aerobic Blood Culture - Final Blood - Venous Escherichia Coli Anaerobic Blood Culture - Final Gram Negative Rods Med Orders - Current: Current Medications Acetaminophen (Tylenol) 650 mg PO Q4H PRN PRN Reason: Pain (Mild 1-3)/fever Last Admin: 05/30/20 09:36 Dose: 650 mg Documented by: Acetaminophen/Codeine Phosphate (Tylenol With Codeine No.3 300mg/30mg) 1 tab PO Q6H PRN PRN Reason: Pain Last Admin: 05/27/20 22:57 Dose: 1 tab Documented by: Allopurinol (Zyloprim) 300 mg PO BEDTIME JOY Last Admin: 05/29/20 19:50 Dose: 300 mg Documented by: Carvedilol (Coreg) 12.5 mg PO BIDMEALS REPLACED BY [facility] Last Admin: 05/30/20 08:21 Dose: 12.5 mg Documented by: Cefuroxime Axetil (Ceftin) 500 mg PO BID REPLACED BY [facility] Last Admin: 05/30/20 09:36 Dose: 500 mg Documented by: Docosanol (Abreva 10%) 1 gm TOP TID@0800,1000,1300 REPLACED BY [facility] Docosanol (Abreva 10%) 1 gm TOP TID@1600,1900,2200 REPLACED BY [facility] Last Admin: 05/30/20 16:26 Dose: 1 applic Documented by: Enoxaparin Sodium (Lovenox) 40 mg SUBCUT Q24H REPLACED BY [facility] Last Admin: 05/30/20 13:28 Dose: 40 mg Documented by: Furosemide (Lasix) 40 mg PO DAILY REPLACED BY [facility] Last Admin: 05/30/20 08:22 Dose: 40 mg Documented by: Loperamide HCl (Imodium Ad) 2 mg PO Q6H PRN PRN Reason: Diarrhea Last Admin: 05/30/20 09:36 Dose: 2 mg Documented by: Losartan Potassium (Cozaar) 50 mg PO DAILY REPLACED BY [facility] Losartan Potassium (Cozaar) 25 mg PO ONETIME ONE Stop: 05/30/20 17:28 Omeprazole (Omeprazole) 20 mg PO BEDTIME REPLACED BY [facility] Last Admin: 05/29/20 19:50 Dose: 20 mg Documented by: Ondansetron HCl (Zofran Odt) 8 mg PO Q6H PRN PRN Reason: Nausea/Vomiting Simvastatin (Zocor) 80 mg PO BEDTIME REPLACED BY [facility] Last Admin: 05/29/20 19:46 Dose: 80 mg Documented by: Sodium Chloride (Saline Flush) 10 ml FLUSH REPLACED BY [facility] Last Admin: 05/30/20 08:21 Dose: 10 ml Documented by: Sodium Chloride (Saline Flush) 10 ml FLUSH ASDIRECTED PRN PRN Reason: Keep Jenni Open Last Admin: 05/30/20 13:28 Dose: 10 ml Documented by: Discontinued Medications Cefuroxime Axetil (Ceftin) 500 mg PO BID REPLACED BY [facility] Furosemide (Lasix) 40 mg PO ONETIME ONE Stop: 05/25/20 19:01 Last Admin: 05/25/20 23:14 Dose: Not Given Documented by: Furosemide (Lasix) 20 mg IVPUSH ONETIME ONE Stop: 05/30/20 13:01 Last Admin: 05/30/20 13:28 Dose: 20 mg Documented by: Ceftriaxone Sodium 1 gm/ (Sodium Chloride) 100 mls @ 200 mls/hr IV ONETIME ONE Stop: 05/25/20 17:34 Last Admin: 05/25/20 17:32 Dose: 200 mls/hr Documented by: Ceftriaxone Sodium 1 gm/ (Sodium Chloride) 100 mls @ 200 mls/hr IV Q24H REPLACED BY [facility] Last Admin: 05/25/20 23:15 Dose: Not Given Documented by: Ceftriaxone Sodium 1 gm/ (Sodium Chloride) 100 mls @ 200 mls/hr IV Q24H REPLACED BY [facility] Stop: 05/31/20 01:00 Last Admin: 05/29/20 17:18 Dose: 200 mls/hr Documented by: Piperacillin Sod/Tazobactam (Sod 3.375 gm/ Sodium Chloride) 100 mls @ 200 mls/hr IV Q6H REPLACED BY [facility] Last Admin: 05/26/20 10:42 Dose: 200 mls/hr Documented by: Sodium Chloride (Sodium Chloride 0.45%) 1,000 mls @ 100 mls/hr IV ONETIME ONE Stop: 05/26/20 21:59 Last Admin: 05/26/20 12:28 Dose: 100 mls/hr Documented by: Piperacillin Sod/Tazobactam (Sod 2.25 gm/ Sodium Chloride) 100 mls @ 200 mls/hr IV Q6H REPLACED BY [facility] Stop: 05/31/20 01:00 Last Admin: 05/30/20 04:55 Dose: 200 mls/hr Documented by: Losartan Potassium (Cozaar) 25 mg PO DAILY REPLACED BY [facility] Last Admin: 05/30/20 08:21 Dose: 25 mg Documented by: Losartan Potassium (Cozaar) 25 mg PO ONETIME ONE Stop: 05/29/20 19:20 Last Admin: 05/29/20 19:48 Dose: 25 mg Documented by: Potassium Chloride (Klor-Con M20) 20 meq PO BEDTIME REPLACED BY [facility] Last Admin: 05/29/20 19:49 Dose: 20 meq Documented by: - Exam Quality Assessment: DVT Prophylaxis General: Alert, Oriented HEENT: Pupils Equal, Pupils Reactive, EOMI, Mucous Membr. Moist/[place] Neck: Supple Lungs: Clear to Auscultation, Normal Respiratory Effort Cardiovascular: Regular Rate, Regular Rhythm GI/Abdominal Exam: Normal Bowel Sounds, Soft, Non-Tender, No Distention (Male) Exam: Deferred Back Exam: No: Muscle Spasm Extremities: Normal Inspection, Normal Range of Motion, Non-Tender, No Pedal Edema, Normal Capillary Refill Skin: Warm, Dry Neurological: No New Focal Deficit Psy/Mental Status: Alert, Normal Affect, Normal Mood Sepsis Event Note - Evaluation Sepsis Screening Result: No Definite Risk - Focused Exam Vital Signs: Vital Signs Temp Pulse Pulse Resp BP BP BP 05/30/20 16:00 36.9 C 55 L 18 165/69 H 05/30/20 12:00 55 L 16 161/82 H 05/30/20 09:44 37.2 C 58 L 16 192/87 H 05/30/20 09:32 37.2 C 58 L 58 H 174/79 H 05/30/20 08:21 58 L 192/87 H Pulse Ox 05/30/20 16:00 94 L 05/30/20 12:00 99 05/30/20 09:44 05/30/20 09:32 05/30/20 08:21 - Problem List & Annotations (1) Bacteremia, escherichia coli SNOMED Code(s): 005654617230 Code(s): R78.81 - BACTEREMIA; B96.20 - UNSP ESCHERICHIA COLI THE CAUSE OF DISEASES CLASSD ELSWHR Status: Acute Priority: High Current Visit: Yes Onset Date: ~05/25/20 Annotation/Comment:: Blood cultures + for E.Coli. Patient received IV Zosyn and Rocephin. IV meds discontinued today and patient switched to Ceftin. (2) UTI, Urinary tract infectious disease SNOMED Code(s): 62741209 Code(s): N39.0 - URINARY TRACT INFECTION, SITE NOT SPECIFIED Status: Acute Priority: High Current Visit: Yes Annotation/Comment:: E.Coli UTI. IV antibiotics as noted above. Now on Ceftin (3) Influenza SNOMED Code(s): 7236388 Code(s): J11.1 - FLU DUE TO UNIDENTIFIED INFLUENZA VIRUS W OTH RESP MANIFEST Status: Acute Priority: Medium Current Visit: Yes Annotation/Comment:: Pt Influenza A and B positive. Denies signficant respiratory complaints. Mild cough and congestion only and that is improving. Screen repeated today to verify positive influenza results given minimal complaints of flu-like symptoms in addition to the rareness of being positive to both strains simultaneously. Positive for B only yesterday. (4) HTN (hypertension) SNOMED Code(s): 31734989 Code(s): I10 - ESSENTIAL (PRIMARY) HYPERTENSION Status: Chronic Priority: Medium Current Visit: Yes Qualifiers: Hypertension type: essential hypertension Qualified Code(s): I10 - Essential (primary) hypertension Annotation/Comment:: Has been running high during stay. Addition of small dose Losartan to regimen yesterday along with single IV dose Lasix today. Improved/observe trends. (5) Hyperlipidemia SNOMED Code(s): 63935614 Code(s): E78.5 - HYPERLIPIDEMIA, UNSPECIFIED Status: Chronic Priority: Low Current Visit: No Qualifiers: Hyperlipidemia type: unspecified Qualified Code(s): E78.5 - Hyperlipidemia, unspecified Annotation/Comment:: under therapy (6) Gout SNOMED Code(s): 52387104 Code(s): M10.9 - GOUT, UNSPECIFIED Status: Chronic Priority: Low Current Visit: No Qualifiers: Gout site: unspecified site Annotation/Comment:: under therapy (7) GERD (gastroesophageal reflux disease) SNOMED Code(s): 488725384 Code(s): K21.9 - GASTRO-ESOPHAGEAL REFLUX DISEASE WITHOUT ESOPHAGITIS Status: Chronic Priority: Low Current Visit: No Qualifiers: Esophagitis presence: esophagitis presence not specified Qualified Code(s): K21.9 - Gastro-esophageal reflux disease without esophagitis Annotation/Comment:: Under therapy. Will plan on holding Omeprazole when patient is on Ceftin due to absorption issues of Ceftin while on PPI - Problem List Review Problem List Initiated/Reviewed/Updated: Yes - My Orders Last 24 Hours: My Active Orders 05/30/20 08:51 Cefuroxime [Ceftin] 500 mg PO BID 05/30/20 09:20 Loperamide [Imodium AD] 2 mg PO Q6H PRN 05/30/20 16:00 Docosanol [Abreva 10%] 1 gm TOP TID@1600,1900,2200 05/30/20 17:27 Losartan [Cozaar] 25 mg PO ONETIME ONE 05/31/20 05:11 CBC WITH AUTO DIFF [HEME] AM COMPREHENSIVE METABOLIC PN,CMP [CHEM] AM UA W/MICROSCOPIC [URIN] AM 05/31/20 08:00 Docosanol [Abreva 10%] 1 gm TOP TID@0800,1000,1300 Losartan [Cozaar] 50 mg PO DAILY - Assessment Assessment:: Patient with multiple concomitant infections, including Influenza a/b +, E.Coli UTI, and E.Coli bacteremia. - Plan Plan:: As above. Patient will require several extra days beyond 96 hours critical access admission given the severity of diagnoses, most prominent being the E.Coli bacteremia. He is improving and transfer to higher LOC is not indicated. Was switched over to oral antibiotics today and if continuing to do well can possibly be discharged home tomorrow with close follow up planned with primary provider.
[2020-05-30] MEDS: Simvastatin 20 MG Tab PO SCH (19:47)
[2020-05-30] MEDS: Allopurinol 100 MG Tab PO SCH (19:47)
[2020-05-31] MEDS: Acetaminophen 325 MG Tab PO PRN (03:11)
[2020-05-31] MEDS ORDERED: Losartan 50 MG Tab PO SCH (08:00)
[2020-05-31 08:08] LABS: CHLORIDE,CL 104 mmol/L (98-107); SODIUM,NA 137 mmol/L (136-145)
[2020-05-31] MEDS: Carvedilol 12.5 MG Tab PO SCH (08:11)
[2020-05-31] MEDS: Sodium Chloride 0.9% 10 ML Syringe FLUSH SCH ×2 (08:13→14:05)
[2020-05-31] MEDS: Furosemide 40 MG Tab PO SCH (08:13)
[2020-05-31] MEDS ORDERED: Sodium Chloride 0.9% 500 ML IV SCH (11:45)
[2020-05-31] MEDS ORDERED: Iopamidol 612 MG/ML 100 ML Bottle IVPUSH STA (11:49)
[2020-05-31] MEDS ORDERED: cefTRIAXone 1 GM in Sodium Chloride 0.9% 100 ML IV ONE (12:32)
--- NOTE | 2020-05-31 12:39 | PCM.DCSUM1 ---
Discharge Summary - Hospital Course Brief History: Admitted for treatment of Influenza A and B, UTI, and found to have bacteremia Diagnosis: Stroke: No - Discharge Data Discharge Date: 05/31/20 Discharge Disposition: Home, Self-Care 01 Condition: Good - Referral to Home Health Primary Care Physician: Agus Murguia MD - Discharge Diagnosis/Problem(s) (1) UTI, Urinary tract infectious disease SNOMED Code(s): 45085365 ICD Code: N39.0 - URINARY TRACT INFECTION, SITE NOT SPECIFIED Status: Acute Priority: High Current Visit: Yes Problem Details: E.Coli UTI. Sensitivity notes that it is susceptable to all agents tested. Changed from IV antibiotics to oral Ceftin yesterday in anticipation for discharge home today. UA today shows that hematuria cleared, but still has >100WBC/hpf. New culture ordered. No blood cultures also ordered. Call placed to [facility] and patient reviewed with [employer] Dr. Rod and ID specialist . They recommended imaging/ideally CT with contrast/to look for abscess or fistula that may be contributing to an ongoing UTI with an organism that should have been highly susceptible to 5 days of IV antibiotics. Unable to take patient for transfer due to [facility] being full. They did recommend ongoing antibiotics while further workup being performed for source control of infection. Patient refuses to stay any longer as inpatient but is willing to come in as outpatient for continued IV therapy. He is scheduled to follow up with his primary provider at [facility] in [place] Thursday to continue follow up and further testing as need ed. (2) Bacteremia, escherichia coli SNOMED Code(s): 262812340601 ICD Code: R78.81 - BACTEREMIA; B96.20 - UNSP ESCHERICHIA COLI THE CAUSE OF DISEASES CLASSD ELSWHR Status: Acute Priority: High Current Visit: Yes Onset Date: ~05/25/20 Problem Details: Blood cultures + for E.Coli. Patient received IV Zosyn and Rocephin. IV meds discontinued and patient switched to Ceftin. Will be changed back to Rocephin after new UA shows that UTI has not cleared. (3) Influenza SNOMED Code(s): 9008711 ICD Code: J11.1 - FLU DUE TO UNIDENTIFIED INFLUENZA VIRUS W OTH RESP MANIFEST Status: Acute Priority: Medium Current Visit: Yes Problem Details: Pt Influenza A and B positive. Denies signficant respiratory complaints. Mild cough and congestion only and that is improving. Screen repeated today to verify positive influenza results given minimal complaints of flu-like symptoms in addition to the rareness of being positive to both strains simultaneously. Positive for B only yesterday. (4) HTN (hypertension) SNOMED Code(s): 58702025 ICD Code: I10 - ESSENTIAL (PRIMARY) HYPERTENSION Status: Chronic Prio rity: Medium Current Visit: Yes Problem Details: Has been running high during stay. Addition of small dose Losartan to regimen yesterday along with single IV dose Lasix today. Continues to have varied readings. Particularly high reading noted right after he was told that the UTI has not apparently cleared and further workup needed. Patient not happy about that and was irritated with staff and situation. Will need close follow up by PCP regarding this and further adjustments of medication as needed. Will continue him on Losartan after discharge. Home BP kit/diary recommended for better tracking of trends. Qualifiers: Hypertension type: essential hypertension Qualified Code(s): I10 - Essential (primary) hypertension (5) Hyperlipidemia SNOMED Code(s): 81118966 ICD Code: E78.5 - HYPERLIPIDEMIA, UNSPECIFIED Status: Chronic Priority: Low Current Visit: No Problem Details: under therapy Qualifiers: Hyperlipidemia type: unspecified Qualified Code(s): E78.5 - Hyperlipidemia, unspecified (6) Gout SNOMED Code(s): 15413811 ICD Code: M10.9 - GOUT, UNSPECIFIED Status: Chronic Priority: Low C urrent Visit: No Problem Details: under therapy Qualifiers: Gout site: unspecified site (7) GERD (gastroesophageal reflux disease) SNOMED Code(s): 751112830 ICD Code: K21.9 - GASTRO-ESOPHAGEAL REFLUX DISEASE WITHOUT ESOPHAGITIS Status: Chronic Priority: Low Current Visit: No Problem Details: Under therapy. Will plan on holding Omeprazole when patient is on Ceftin due to absorption issues of Ceftin while on PPI Qualifiers: Esophagitis presence: esophagitis presence not specified Qualified Code(s): K21.9 - Gastro-esophageal reflux disease without esophagitis (8) Thrombocytopenia SNOMED Code(s): 138601182 ICD Code: D69.6 - THROMBOCYTOPENIA, UNSPECIFIED Status: Chronic Priority: Low Current Visit: Yes - Patient Summary/Data Consults: Consultations 05/29/20 09:26 PT Evaluation and Treatment [CONS] Routine Hospital Course: As above. Patient received IV antibiotics for UTI. His condition improved significantly within first few days. Found to have E.Coli bacteremia. Due to that and continued low grade temps he was kept as inpatient and IV antibiotics continued. WBC and lactic acid always normal range throughout illness. BPs as noted above varied and were sometimes quite elevated. Patient reports that his BP has been a problem over the last 6 months or so and his primary provider recently increased his meds. Losartan added during stay. Switched over to oral Ceftin yesterday in preparation for probable d/c home. UA repeated this morning to check for clearance of UTI and it showed no improvement in WBCs/hpf, however hematuria improved. Given persistent UTI it was suspected that there may be something else going on contributing to this on going infection. Call placed to [facility] and patient discussed with from Nephrology and from ID. They recommended further imaging, either CT or even US to look for abscess, etc. CT was felt to be best option for thoroughness. Patient's CrCl very good, although there was some trepidation due to his having only one kidney functioning. Pt ok with having the CT. IV fluid bolus 500ml ordered to help flush system afterwards. Patient noted to have prostate abscess on CT around 3cm across. Call placed to [facility] and patient then reviewed with Urology, . He recommended IV Cipro for better penetration into prostate and new scan on Thursday to make certain abscess is responding favorably. If it is, recommends Oral Cipro for one month with follow up by primary care provider and referral to Urology for consult. Transfer to [facility] not indicated at this time. Patient refuses to stay in the hospital any longer. Will plan on daily IV Cipro over weekend for continued coverage of infection. New blood cultures drawn to check for clearance of infection from blood. Patient is to follow up with at [facility] in next week if repeat CT is favorable. Precautions reviewed. Patient annoyed with current situation, his frustration was validated. He wondered why a CT was not performed when he first came to ER. It was explained to him that what he has is quite unusual and that the vast majority of UTIs are relatively simple to treat in nature and respond quickly to antibiotics. Suspect conversation contributed to observed BP rise at same time. BP as noted above has been a problem. It will need to be followed closely. He will be discharged with Losartan added to medication regimen with goal of reducing BP. Recommended to patient to get home BP cuff and keep own diary to help track BP trends. - Patient Instructions Diet: Usual Diet as Tolerated Activity: As Tolerated Notify Provider of: Fever, Increased Pain, Nausea and/or Vomiting Other/Special Instructions: Come back daily for your IV antibiotics through Thursday. On Thursday you will have a repeat CT to see if the prostate abscess is improving. If it is, you will continue on oral Ciprofloxin and follow up with and get a referral to Urology to be seen. If you feel worse, return to ER. It is also a good idea to start checking your own blood pressures at home. Work with on fine tuning your blood pressure medications. The combination of medications you are on can cause some changes in your potassium levels and that should be checked by periodically to make sure Potassium is in normal range. If the abscess looks worse Thursday, we will call [facility] and make appropriate plans as recommended by Urology. - Discharge Plan *PRESCRIPTION DRUG MONITORING PROGRAM REVIEWED*: Not Applicable Prescriptions/Med Rec: Losartan [Cozaar] 50 mg PO DAILY #30 tablet Home Medications: Home Meds Allopurinol [Zyloprim] 300 mg PO BEDTIME 05/25/20 [History] Aspirin [Aspirin EC] 162 mg PO DAILY 05/25/20 [History] Ferrous Sulfate [Iron] 325 mg PO BIDMEALS 05/25/20 [History] Furosemide [Lasix] 40 mg PO DAILY 05/25/20 [History] Omeprazole 20 mg PO DAILY 05/25/20 [History] Potassium Chloride 20 meq PO DAILY@1800 05/25/20 [History] Simvastatin 80 mg PO BEDTIME 05/25/20 [History] carvediloL [Carvedilol] 12.5 mg PO BIDMEALS 05/25/20 [History] Docosanol [Abreva 10%] 1 gm TOP TID@0800,1000,1300 tube 05/31/20 [Rx] Losartan [Cozaar] 50 mg PO DAILY #30 tablet 05/31/20 [Rx] Patient Handouts: Piperacillin; Tazobactam injection, Influenza, Adult, [id number], Losartan tablets, Ceftriaxone injection, Enoxaparin injection, Hypertension, Adult, [id number], Urosepsis, Adult Forms: ED Department Discharge Referrals: Agus Murguia MD [Primary Care Provider] - - Discharge Summary/Plan Comment DC Time >30 min.: No - General Info Date of Service: 05/31/20 Admission Dx/Problem (Free Text: Pt presented to ER with weakness, hematuria and confusion Has hx/o UTI's in past when has hematuria Noted to have UTI. Pt also Influenza A and B positive Pt given IV fluids and IV Rocephin in ER. Admitted for further care/fluids/antibiotics. Blood cultures + for E.Coli sepsis. Subjective Update: Patient feels a bit more energetic today. Was able to work with PT/OT, walked around room. Feels stronger. No feelings of fever throughout today. Appetite is still a bit poor. No acute changes reported. Functional Status: Reports: Pain Controlled, Tolerating Diet, Ambulating, Urinating. Denies: New Symptoms - Review of Systems General: Reports: Weakness (some generalized fatigue) HEENT: Denies: Ear Pain, Eye Pain, Headaches, Sinus Congestion, Sore Throat, R hinitis, Visual Changes Pulmonary: Reports: Cough (mild). Denies: Shortness of Breath, Pleuritic Chest Pain, Sputum, Hemoptysis, Wheezing Cardiovascular: Denies: Chest Pain, Palpitations, Dyspnea on Exertion, Orthopnea, Edema, Lightheadedness Gastrointestinal: Reports: Decreased Appetite (mild). Denies: Abdominal Pain, Constipation, Diarrhea, Difficulty Swallowing, Hematochezia, Melena, Nausea, Vomiting Genitourinary: Denies: Dysuria, Frequency, Burning, Pain, Hematuria, Retention, Flank Pain Musculoskeletal: Reports: Other (no acute changes from baseline) Skin: Reports: No Symptoms Neurological: Reports: No Symptoms Psychiatric: Reports: No Symptoms - Patient Data Vitals - Most Recent: Last Vital Signs Temp 37.2 C 05/31/20 11:46 Pulse 57 L 05/31/20 11:46 Resp 16 05/31/20 11:46 BP 198/87 H 05/31/20 11:46 Pulse Ox 96 05/31/20 11:46 Weight - Most Recent: 89.584 kg I&O - Last 24 hours: Intake & Output 05/30/20 05/31/20 05/31/20 22:59 06:59 14:59 Intake Total 120 Balance 120 Lab Results - Last 24 hrs: Laboratory Results - last 24 hr 05/31/20 05/31/20 05/31/20 Range/Units 07:47 07:47 09:30 WBC 5.8 (4.0-10.2) K/uL RBC 4.62 (4.33-5.41) M/uL Hgb 14.4 (13.1-16.8) g/dL Hct 42.3 (39.0-49.0) % MCV 91.6 (84.0-98.0) fL MCH 31.2 (28.2-33.3) pg MCHC 34.0 (31.7-36.0) g/dL RDW 14.2 H (11.2-14.1) % Plt Count 96 L (150-350) K/uL Neut % (Auto) 64.8 (45.0-80.0) % Lymph % (Auto) 23.8 (10.0-50.0) % Harnett % (Auto) 9.6 (2.0-14.0) % Eos % (Auto) 1.5 (0.0-5.0) % Baso % (Auto) 0.3 (0.0-2.0) % Neut # (Auto) 3.78 (1.40-7.00) K/uL Lymph # (Auto) 1.39 (0.50-3.50) K/uL Harnett # (Auto) 0.56 (0.00-1.00) K/uL Eos # (Auto) 0.09 (0.00-0.50) K/uL Baso # (Auto) 0.02 (0.00-0.20) K/uL Sodium 137 (136-145) mmol/L Potassium 4.0 (3.5-5.1) mmol/L Chloride 104 (98-107) mmol/L Carbon Dioxide 25.6 (21.0-32.0) mmol/L BUN 11 (7-18) mg/dL Creatinine 0.95 (0.51-1.17) mg/dL Est Cr Clr Drug Dosing 54.76 mL/min Estimated GFR (MDRD) > 60 mL/min Glucose 96 (74-106) mg/dL Calcium 9.0 (8.5-10.1) mg/dL Total Bilirubin 0.6 (0.2-1.0) mg/dL AST 28 (15-37) U/L ALT 34 (12-78) U/L Alkaline Phosphatase 115 (46-116) IU/L Total Protein 6.5 (6.4-8.2) g/dL Albumin 2.9 L (3.4-5.0) g/dL Specimen Type Urinblad Urine Color Dark yellow Urine Appearance Slightly cloudy Urine pH 6.5 (5.0-9.0) Ur Specific Custer 1.025 (1.005-1.030) Urine Protein 30 H (NEGATIVE) mg/dL Urine Glucose (UA) Negative (NEGATIVE) mg/dL Urine Ketones Negative (NEGATIVE) mg/dL Urine Occult Blood Large H (NEGATIVE) Urine Nitrite Negative (NEGATIVE) Urine Bilirubin Negative (NEGATIVE) Urine Urobilinogen 0.2 (0.2-1.0) E.U./dL Ur Leukocyte Esterase Large H (NEGATIVE) Urine RBC 10-20 H /HPF Urine WBC >100 H /HPF Urine Bacteria Few (NONE TO FEW) /HPF Med Orders - Current: Current Medications Acetaminophen (Tylenol) 650 mg PO Q4H PRN PRN Reason: Pain (Mild 1-3)/fever Last Admin: 05/31/20 03:11 Dose: 650 mg Documented by: Acetaminophen/Codeine Phosphate (Tylenol With Codeine No.3 300mg/30mg) 1 tab PO Q6H PRN PRN Reason: Pain Last Admin: 05/27/20 22:57 Dose: 1 tab Documented by: Allopurinol (Zyloprim) 300 mg PO BEDTIME [facility] Last Admin: 05/30/20 19:47 Dose: 300 mg Documented by: Carvedilol (Coreg) 12.5 mg PO BIDMEALS [facility] Last Admin: 05/31/20 08:11 Dose: 12.5 mg Documented by: Cefuroxime Axetil (Ceftin) 500 mg PO BID [facility] Last Admin: 05/31/20 08:12 Dose: 500 mg Documented by: Docosanol (Abreva 10%) 1 gm TOP TID@0800,1000,1300 [facility] Last Admin: 05/31/20 10:18 Dose: 1 applic Documented by: Docosanol (Abreva 10%) 1 gm TOP TID@1600,1900,2200 [facility] Last Admin: 05/30/20 22:09 Dose: 1 applic Documented by: Enoxaparin Sodium (Lovenox) 40 mg SUBCUT Q24H [facility] Last Admin: 05/30/20 13:28 Dose: 40 mg Documented by: Furosemide (Lasix) 40 mg PO DAILY [facility] Last Admin: 05/31/20 08:13 Dose: 40 mg Documented by: Sodium Chloride (Normal Saline) 500 mls @ 999 mls/hr IV .BOLUS [facility] Loperamide HCl (Imodium Ad) 2 mg PO Q6H PRN PRN Reason: Diarrhea Last Admin: 05/30/20 09:36 Dose: 2 mg Documented by: Losartan Potassium (Cozaar) 50 mg PO DAILY [facility] Last Admin: 05/31/20 08:13 Dose: 50 mg Documented by: Omeprazole (Omeprazole) 20 mg PO BEDTIME [facility] Last Admin: 05/29/20 19:50 Dose: 20 mg Documented by: Ondansetron HCl (Zofran Odt) 8 mg PO Q6H PRN PRN Reason: Nausea/Vomiting Simvastatin (Zocor) 80 mg PO BEDTIME [facility] Last Admin: 05/30/20 19:47 Dose: 80 mg Documented by: Sodium Chloride (Saline Flush) 10 ml FLUSH [facility] Last Admin: 05/31/20 08:13 Dose: 10 ml Documented by: Sodium Chloride (Saline Flush) 10 ml FLUSH ASDIRECTED PRN PRN Reason: Keep Jenni Open Last Admin: 05/30/20 13:28 Dose: 10 ml Documented by: Discontinued Medications Cefuroxime Axetil (Ceftin) 500 mg PO BID [facility] Furosemide (Lasix) 40 mg PO ONETIME ONE Stop: 05/25/20 19:01 Last Admin: 05/25/20 23:14 Dose: Not Given Documented by: Furosemide (Lasix) 20 mg IVPUSH ONETIME ONE Stop: 05/30/20 13:01 Last Admin: 05/30/20 13:28 Dose: 20 mg Documented by: Ceftriaxone Sodium 1 gm/ (Sodium Chloride) 100 mls @ 200 mls/hr IV ONETIME ONE Stop: 05/25/20 17:34 Last Admin: 05/25/20 17:32 Dose: 200 mls/hr Documented by: Ceftriaxone Sodium 1 gm/ (Sodium Chloride) 100 mls @ 200 mls/hr IV Q24H [facility] Last Admin: 05/25/20 23:15 Dose: Not Given Documented by: Ceftriaxone Sodium 1 gm/ (Sodium Chloride) 100 mls @ 200 mls/hr IV Q24H [facility] Stop: 05/31/20 01:00 Last Admin: 05/29/20 17:18 Dose: 200 mls/hr Documented by: Piperacillin Sod/Tazobactam (Sod 3.375 gm/ Sodium Chloride) 100 mls @ 200 mls/hr IV Q6H [facility] Last Admin: 05/26/20 10:42 Dose: 200 mls/hr Documented by: Sodium Chloride (Sodium Chloride 0.45%) 1,000 mls @ 100 mls/hr IV ONETIME ONE Stop: 05/26/20 21:59 Last Admin: 05/26/20 12:28 Dose: 100 mls/hr Documented by: Piperacillin Sod/Tazobactam (Sod 2.25 gm/ Sodium Chloride) 100 mls @ 200 mls/hr IV Q6H [facility] Stop: 05/31/20 01:00 Last Admin: 05/30/20 04:55 Dose: 200 mls/hr Documented by: Iopamidol (Isovue-300 (61%)) 100 ml IVPUSH ONETIME [facility] Stop: 05/31/20 11:50 Last Admin: 05/31/20 12:23 Dose: 100 ml Documented by: Losartan Potassium (Cozaar) 25 mg PO DAILY [facility] Last Admin: 05/30/20 08:21 Dose: 25 mg Documented by: Losartan Potassium (Cozaar) 25 mg PO ONETIME ONE Stop: 05/29/20 19:20 Last Admin: 05/29/20 19:48 Dose: 25 mg Documented by: Losartan Potassium (Cozaar) 25 mg PO ONETIME ONE Stop: 05/30/20 17:28 Last Admin: 05/30/20 18:06 Dose: 25 mg Documented by: Potassium Chloride (Klor-Con M20) 20 meq PO BEDTIME [facility] Last Admin: 05/29/20 19:49 Dose: 20 meq Documented by: - Exam General: Reports: Alert, Oriented, Cooperative, No Acute Distress HEENT: Reports: Pupils Equal, Pupils Reactive, EOMI, Mucous Membr. Moist/[place] Neck: Reports: Supple Lungs: Reports: Clear to Auscultation, Normal Respiratory Effort Cardiovascular: Reports: Regular Rate, Regular Rhythm GI/Abdominal Exam: Normal Bowel Sounds, Soft, Non-Tender, No Distention (Male) Exam: Deferred Rectal (Males) Exam: Deferred Back Exam: Denies: CVA Tenderness (L), CVA Tenderness (R), Muscle Spasm Extremities: Non-Tender, Normal Capillary Refill Skin: Reports: Warm, Dry Neurological: Reports: No New Focal Deficit Psy/Mental Status: Reports: Alert, Normal Affect, Normal Mood
[2020-05-31] MEDS: Enoxaparin 40 MG/0.4 ML Syringe SUBCUT SCH (13:17)
[2020-05-31] MEDS ORDERED: Ciprofloxacin in D5W 400 MG in Premix Bag 1 BAG IV ONE ×2 (13:52)
== END 2020-05-31 16:30 | disposition home or self-care (01) | DRG 872 ==
LOC: LL.ED 15:20 → LL.MS 17:18 → UNDOADMIN 17:18 → LL.MS 18:29
PROVIDERS: ADMIT Family Medicine; ATTEND Family Medicine
DX: A41.51 Sepsis due to Escherichia coli [E. coli] (principal); J11.1 Influenza due to unidentified influenza virus with other respiratory manifestations; J09.X2 Influenza due to identified novel influenza A virus with other respiratory manifestations; Z87.440 Personal history of urinary (tract) infections; N39.0 Urinary tract infection, site not specified; N41.2 Abscess of prostate; Q60.0 Renal agenesis, unilateral; J10.1 Influenza due to other identified influenza virus with other respiratory manifestations; I10 Essential (primary) hypertension; E78.5 Hyperlipidemia, unspecified; M10.9 Gout, unspecified; K21.9 Gastro-esophageal reflux disease without esophagitis; Z20.828 Contact with and (suspected) exposure to other viral communicable diseases; D69.6 Thrombocytopenia, unspecified; R31.9 Hematuria, unspecified; Z79.82 Long term (current) use of aspirin; Z79.899 Other long term (current) drug therapy
CPT/HCPCS: 36415; 70450; 74177; 80048; 80053; 81001; 83605; 83735; 85025; 87040; 87077; 87086; 87088; 87186; 87804; 96365; 97161-GP; 97530-GP; 99222; 99232; 99238; 99285-25; A9270-GY; J0696; J0744; J1650; J1940; J2543; J7030; J7040; J7050; Q9967; U0002